=== PATIENT | male | born 1985 | race Caucasian/White ===

== ENCOUNTER → 2016-07-17 | Outpatient (CLI) | payer MEDICAID, OTHER ==
[2016-07-17 13:22] LABS: BASO % 0.6 % (0.0-1.0); EOS # 0.2 K/mm3 (0.0-0.50); LARGE UNSTAINED CELL # 0.1 K/mm3 (0.0-0.4); LARGE UNSTAINED CELL % 1.2 % (0.0-4.0); LYMPH # 2.1 K/mm3 (1.5-6.5); LYMPH % 25.9 % (24.0-44.0); MEAN CORPUSCULAR HEMOGLOBIN 29.3 pg (27.0-33.0); MEAN CORPUSCULAR HGB CONC 34.4 g/dl (32.0-36.5); MONO # 0.4 K/mm3 (0.0-0.8); MONO % 5.4 % (0.0-5.0); PLATELET COUNT, AUTOMATED 214 k/mm3 (150-450); RED CELL DISTRIBUTION WIDTH 12.7 % (11.5-14.5); WHITE BLOOD COUNT 7.8 K/mm3 (4.0-10.0)
[2016-07-17 13:44] LABS: ALBUMIN 4.1 GM/DL (3.2-5.2); ALBUMIN/GLOBULIN RATIO 1.24 (1.00-1.93); ALKALINE PHOSPHATASE 74 U/L (45-117); ALT/SGPT 24 U/L (12-78); ANION GAP 7 MEQ/L (8-16); AST/SGOT 22 U/L (15-37); BILIRUBIN,TOTAL 0.5 MG/DL (0.2-1.0); BLOOD UREA NITROGEN 14 MG/DL (7-18); CALCIUM LEVEL 9.1 MG/DL (8.5-10.1); CARBON DIOXIDE LEVEL 27 MEQ/L (21-32); CHLORIDE LEVEL 105 MEQ/L (98-107); CREATININE FOR GFR 0.83 MG/DL (0.70-1.30); GLOMERULAR FILTRATION RATE > 60.0 (>60); GLUCOSE, FASTING 96 MG/DL (70-105); POTASSIUM SERUM 4.2 MEQ/L (3.5-5.1); SODIUM LEVEL 139 MEQ/L (136-145); TOTAL PROTEIN 7.4 GM/DL (6.4-8.2)
[2016-07-17 14:04] LABS: CONTROL LINE INT CTR LINE PRESENT; HIV SCRN NEGATIVE (NEGATIVE); HIV SCRN1 NEGATIVE (NEGATIVE)
== END ==
LOC: M LAB 11:58
PROVIDERS: ATTEND Family Medicine
DX: F11.20 Opioid dependence, uncomplicated (principal)

== ENCOUNTER → 2017-06-27 | Outpatient (CLI) | payer MEDICAID ==
[2017-06-27 15:55] LABS: HEMATOCRIT 45.7 % (42.0-52.0); HEMOGLOBIN 15.7 g/dl (14.0-18.0); MEAN CORPUSCULAR HEMOGLOBIN 27.8 pg (27.0-33.0); MEAN CORPUSCULAR HGB CONC 34.4 g/dl (32.0-36.5); MEAN CORPUSCULAR VOLUME 80.9 fl (80.0-96.0); PLATELET COUNT, AUTOMATED 264 10^3/uL (150-450); RED BLOOD COUNT 5.65 10^6/uL (4.30-6.10); RED CELL DISTRIBUTION WIDTH 12.5 % (11.5-14.5); WHITE BLOOD COUNT 11.6 10^3/uL (4.0-10.0)
[2017-06-27 16:12] LABS: ALBUMIN 4.2 GM/DL (3.2-5.2); ALBUMIN/GLOBULIN RATIO 1.17 (1.00-1.93); ALKALINE PHOSPHATASE 66 U/L (45-117); ALT/SGPT 17 U/L (12-78); ANION GAP 9 MEQ/L (8-16); AST/SGOT 16 U/L (7-37); BILIRUBIN,TOTAL 0.4 MG/DL (0.2-1.0); BLOOD UREA NITROGEN 11 MG/DL (7-18); CALCIUM LEVEL 9.1 MG/DL (8.5-10.1); CARBON DIOXIDE LEVEL 26 MEQ/L (21-32); CHLORIDE LEVEL 104 MEQ/L (98-107); CREATININE FOR GFR 0.96 MG/DL (0.70-1.30); GLOMERULAR FILTRATION RATE > 60.0 (>60); GLUCOSE, FASTING 85 MG/DL (70-100); SODIUM LEVEL 139 MEQ/L (136-145); TOTAL PROTEIN 7.8 GM/DL (6.4-8.2)
[2017-06-27 17:45] LABS: CHLAMYDIA DNA AMPLIFICATION NEGATIVE (NEGATIVE); GC DNA AMPLIFICATION NEGATIVE (NEGATIVE)
[2017-06-29 10:40] LABS: HEPATITIS B SURFACE ANTIGEN NEGATIVE (NEGATIVE)
[2017-06-29 10:57] LABS: HIV 1&2 SCREEN CENTAUR NEGATIVE (NEGATIVE)
[2017-06-29 11:36] LABS: HEPATITIS C VIRUS ABY INDEX > 11.0 INDEX (<0.8)
== END ==
LOC: M LAB 14:38
DX: F11.20 Opioid dependence, uncomplicated (principal)
CPT/HCPCS: 93005

== ENCOUNTER 2017-08-29 12:51 | Emergency (ER) | payer MEDICAID ==
[2017-08-29] MEDS ORDERED: ONDANSETRON 4MG/2ML VIAL (J2405) IV (15:00)
[2017-08-29] MEDS ORDERED: NS 1,000 ML IV (15:00)
[2017-08-29] MEDS: ONDANSETRON 4 MG ORAL DISINTEGRATING TAB (S0181) PO (15:29)
== END 2017-08-29 16:29 | disposition home or self-care (01) ==
LOC: M ED 12:51
DX: K52.9 Noninfective gastroenteritis and colitis, unspecified (principal); F11.21 Opioid dependence, in remission
CPT/HCPCS: 99284

== ENCOUNTER → 2018-03-19 | Outpatient (CLI) | payer MEDICAID | LOC: M OUTALCOH 10:11 | DX: Z13.9 Encounter for screening, unspecified (principal); F11.20 Opioid dependence, uncomplicated ==

== ENCOUNTER 2018-03-26 16:00 | Outpatient (RCR) | payer MEDICAID | END 2018-04-12 | LOC: M OUTALCOH 03-29 13:00 | DX: F11.20 Opioid dependence, uncomplicated (principal); F17.200 Nicotine dependence, unspecified, uncomplicated ==

== ENCOUNTER 2018-05-10 13:00 | Outpatient (RCR) | payer MEDICAID ==
[~2018-05-10 13:00] MED LIST: ZOFR4TAB14 PO
[2018-05-15] MEDS ORDERED: SUBO8MIS SL (11:32)
[2018-05-15] MEDS ORDERED: ZOFR4TAB14 PO (11:43)
== END 2018-05-13 ==
LOC: M OUTALCOH 13:00
PROVIDERS: ATTEND Psychiatry & Neurology Psychiatry
DX: F17.200 Nicotine dependence, unspecified, uncomplicated (principal); F11.20 Opioid dependence, uncomplicated

== ENCOUNTER 2018-06-07 12:54 | Outpatient (RCR) | payer MEDICAID ==
[~2018-06-07 12:54] MED LIST changes: +SUBO8MIS SL
== END 2018-06-13 ==
LOC: M OUTALCOH 12:54
PROVIDERS: ATTEND Psychiatry & Neurology Psychiatry
DX: F11.20 Opioid dependence, uncomplicated (principal)

== ENCOUNTER 2018-07-05 16:00 | Outpatient (RCR) | payer MEDICAID ==
[2018-07-08] MEDS ORDERED: ERYTOIN8 OP (17:20)
[2018-07-08] MEDS ORDERED: KETO5OPD OP (17:20)
== END 2018-07-11 ==
LOC: M OUTALCOH 16:00
PROVIDERS: ATTEND Psychiatry & Neurology Psychiatry
DX: F11.20 Opioid dependence, uncomplicated (principal)

== ENCOUNTER 2018-07-08 16:10 | Emergency (ER) | payer MEDICAID, OTHER ==
[~2018-07-08] VITALS: Ht 182.9 cm; Wt 77.3 kg
[2018-07-08] MEDS ORDERED: TETRACAINE 0.5% OPHTH SOLN 4ML OU ONE (16:45)
[2018-07-08] MEDS ORDERED: FLUORESCEIN OPHTH 1 MG STRIP OU ONE (16:45)
[2018-07-08] MEDS ORDERED: ERYTOIN8 OP (17:20)
[2018-07-08] MEDS ORDERED: KETO5OPD OP (17:20)
[2018-07-08 17:52] VITALS: BP 126/64
== END 2018-07-08 17:51 | disposition home or self-care (01) ==
LOC: M ED 16:10
DX: H16.8 Other keratitis (principal); F19.11 Other psychoactive substance abuse, in remission; F17.200 Nicotine dependence, unspecified, uncomplicated; Z79.899 Other long term (current) drug therapy

== ENCOUNTER 2018-08-08 10:00 | Outpatient (RCR) | payer OTHER ==
[~2018-08-08 10:00] MED LIST changes: +ERYTOIN8 OP; +KETO5OPD OP
== END 2018-08-11 ==
LOC: M OUTALCOH 10:00
PROVIDERS: ATTEND Psychiatry & Neurology Psychiatry
DX: F11.20 Opioid dependence, uncomplicated (principal)

== ENCOUNTER 2018-08-21 22:02 | Inpatient (IN) | payer MEDICAID, OTHER ==
[~2018-08-21 22:02] MED LIST changes: +KETO0.5S2 OP; -KETO5OPD OP
[2018-08-21 23:10] VITALS: BP 136/86
[2018-08-22 00:03] LABS: INR 1.06; PROTHROMBIN TIME 13.9 SECONDS (12.1-14.4)
[2018-08-22 00:12] LABS: HEMATOCRIT 46.2 % (42.0-52.0); HEMOGLOBIN 15.8 g/dl (13.5-17.5); MEAN CORPUSCULAR HEMOGLOBIN 27.6 pg (27.0-33.0); MEAN CORPUSCULAR HGB CONC 34.2 g/dl (32.0-36.5); MEAN CORPUSCULAR VOLUME 80.8 fl (80.0-96.0); RED BLOOD COUNT 5.72 10^6/uL (4.30-6.10); WHITE BLOOD COUNT 8.3 10^3/uL (4.0-10.0)
[2018-08-22 00:29] LABS: PLATELET COUNT, AUTOMATED 72 10^3/uL (150-450)
[2018-08-22 00:35] LABS: ACETAMINOPHEN LEVEL < 2.0 UG/ML (10.0-30.0); ALBUMIN 3.5 GM/DL (3.2-5.2); ALT/SGPT 1711 U/L (12-78); BILIRUBIN,TOTAL 6.7 MG/DL (0.2-1.0); BLOOD UREA NITROGEN 11 MG/DL (7-18); CARBON DIOXIDE LEVEL 28 MEQ/L (21-32); CHLORIDE LEVEL 102 MEQ/L (98-107); CREATININE FOR GFR 0.66 MG/DL (0.70-1.30); FERRITIN 647 NG/ML (26-388); GLOMERULAR FILTRATION RATE > 60.0 (>60); GLUCOSE, FASTING 102 MG/DL (70-100); SODIUM LEVEL 138 MEQ/L (136-145); TOTAL PROTEIN 6.2 GM/DL (6.4-8.2)
[2018-08-22 00:51] LABS: LDH LACTATE DEHYDROGENASE 259 U/L (87-241); LIPASE 198 U/L (73-393)
[2018-08-22] MEDS ORDERED: NS 1,000 ML IV ONE (01:00)
--- NOTE | 2018-08-22 01:12 | HPEPDOC ---
[facility] Medical History & Physical Date of Admission Aug 22, 2018 History and Physical CHIEF COMPLAINT: (Transfer from [place]) Nausea/Vomiting/diarrhea HISTORY OF PRESENT ILLNESS: Hernan Marshall is a 33 YO M with history of IV drug use (last known IV drug use one year ago) currently on Suboxone treatment who presents as transfer from [facility] for more specialized care. He reports that for the past 4-5 days he has been nauseous, vomiting, lethargic and has had dark urine. He has been taking numerous ibuprofen pills during this time (3-4 pills every hour) as well as Tylenol with little to no relief. He does report that his 2-year-old daughter had a stomach virus prior to his symptoms. This afternoon his came home from work and noticed that he was very jaundiced, which prompted his trip to the ER in [place]. In the ER he was found to have elevated liver enzymes and bilirubin, he underwent a CT scan which only found minor pericholecystic fluid, focal thickening of the gallbladder with no stones, prominence of the portal triads, and periportal edema with ductal d ilation. The patient underwent a right upper quadrant ultrasound which was unremarkable. The patient has been to [facility] ED numerous times for numerous reasons. On 06/27/17 he was found to have an elevated hepatitis C antibody index without any signs of acute infection. He believes he was exposed to hepatitis C when he was an IV drug user. The patient does report that last year in June he did have elevated liver enzymes and bilirubin, but never followed up to find out the etiology. PAST MEDICAL HISTORY: 1. History of IV drug use 2. Childhood asthma 3. Patient reports history of elevated liver enzymes, but unknown etiology PAST SURGICAL HISTORY: None SOCIAL HISTORY: Lives with his and daughter in [place]. 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 Smokes 1 pack of cigarettes every day. No current drug use reported. No alcohol consumption reported. FAMILY HISTORY: Unknown ALLERGIES: Please see below. REVIEW OF SYSTEMS: A 10 point review of systems was performed and is negative other than what is mentioned in the HPI HOME MEDICATIONS: Please see below. PHYSICAL EXAMINATION: VITAL SIGNS: Temperature 96.9, pulse 67, respiratory rate 20, blood pressure 136/86, pulse oximetry 99 % on room air. GENERAL APPEARANCE: Alert, calm, sitting up in bed, pleasant, numerous tattoos, appears stated age HEENT: The patient does have jaundice under his tongue, sclerae are icteric, PERRLA, EOMI, moist mucous membranes CARDIOVASCULAR: RRR, no murmurs, rubs or gallops LUNGS: Clear to auscultation bilaterally without any adventitious breath sounds ABDOMEN: Soft, nontender, bowel sounds are present, liver is not enlarged, spleen is not palpable or enlarged, no signs of chronic liver disease MUSCULOSKELETAL: Moves all extremities well EXTREMITIES: No clubbing, cyanosis or edema NEUROLOGICAL: Cranial nerves II through XII intact, no focal deficits appreciated PSYCHIATRIC: Normal mood, normal affect, AAO 3 LABORATORY DATA: See below. IMAGING: CT abdomen/pelvis at [facility]: Minor pericholecystic fluid. Focal thickening or peristalsis of the fundal portion of the gallbladder. No definitive radiodense gallstone. Minimal prominence of the portal triads, question periportal edema that is very minor intra-hepatic ductal dilation dictation. Minor free fluid in pelvis. There is mild fluid distention of small bowel loops of bowel. Finding is nonspecific. Findings may represent recent ingestion of fluid/peristalsis, mild enteritis, ileus, or less likely early obstructive changes. Consider ultrasound evaluation. Right upper quadrant ultrasound at [facility]: Impression: Unremarkable right upper quadrant ultrasound MICROBIOLOGY: Please see below. ASSESSMENT: This is a 33-year-old male with a history of IV drug use and exposure to hepatitis C who presented to [facility] for nausea, vomiting, diarrhea and jaundice found to have severe transaminitis and hyperbilirubinemia. At [place] his bilirubin was found to be 7.4, alkaline phosphatase 277, AST 949, ALT 2077. His platelet count was found to be 82. Given that the patient does have a history of hepatitis C exposure and positive antibody this could likely be secondary to acute hepatitis C infection versus less likely autoimmune hepatitis. No gallstones were visualized on CT scan or right upper quadrant ultrasound at [facility]. PLAN: 1. Acute Hepatitis: -Will need Gastroenterology consult in AM. -Pending hepatitis studies, including KENOYN for autoimmune hepatitis -Will start on fluid resuscitation -Zofran PRN for nausea 2. History of IVDU -Patient is currently on Suboxone with dose recently increased 2/2 withdrawal symptoms. Unlikely that this has anything to do with acute hepatitis. There have been a few case reports of patients experiencing acute hepatitis with high doses of Suboxone, given that Suboxone undergoes extensive first pass hepatic extraction and is metabolized primarily by the cytochrome P450 system (CYP 3A4), making it more likely to cause acute liver injury. The increase of his dose does correspond to the beginning of his symptoms of present illness. DVT Ppx: Stockings CODE STATUS: FULL CODE Vital Signs Vital Signs Date Time Temp Pulse Resp B/P (MAP) Pulse Ox O2 Delivery O2 Flow Rate FiO2 08/21/18 23:10 96.9 67 20 136/86 (103) 99 Laboratory Data Labs 24H Laboratory Tests 2 08/21/18 23:32: 08/21/18 23:38: Prothrombin Time 13.9, Prothromb Time International Ratio 1.06, Lactic Acid Level 0.8 CBC/BMP Home Medications Scheduled Buprenorphine HCl/Naloxone HCl (Suboxone 8 mg-2 mg Sl Film) 1 Each Film, 1 STRIP SL BID Scheduled PRN Ibuprofen (Ibuprofen) 200 Mg Tablet, 800 MG PO TID PRN for PAIN / FEVER Allergies Coded Allergies: No Known Allergies (Unverified , 08/29/17) GME ATTESTATION GME ATTESTATION My faculty preceptor for this patient encounter was physically present during the encounter and was fully available. All aspects of the patient interview, examination, medical decision making process, and medical care plan development were reviewed and approved by the faculty preceptor. The faculty preceptor is aware and concurs with the plan as stated in the body of this note and will attest to such by his/her cosignature. ATTENDING NOTE I have reviewed the residents note and have personally examined the patient. I agree with the Residents physical examination and assessment and plan with the following addendums Acute hepatitis with mixed hepatocellular and cholestatic picture. most probably viral vs drug related vs shock related. Patient's Tylenol level int eh other hospital as wel as in our hospital was not elevated. though he did take significant amounts of tylenol and NSAIDS in the past 1 week however he says that over the past 2 days he has not been taking much. Patient did not have any overt hypotension in the other hospital or here though he said he was very light headed and dizzy for several days in the past 1 week which has improved in the past 2 days and he has intact been feeling a little better and eating more so he may have had episodes of hypotension at home. DANE GIFFORD MD Aug 22, 2018 01:12 MOISES DAVIS MD Aug 23, 2018 19:35
[2018-08-22] MEDS ORDERED: IBUP-1091 PO (01:58)
[2018-08-22] MEDS ORDERED: SUBO8MIS SL (01:58)
[2018-08-22 05:49] LABS: HEMATOCRIT 41.7 % (42.0-52.0); HEMOGLOBIN 14.3 g/dl (13.5-17.5); MEAN CORPUSCULAR HEMOGLOBIN 27.1 pg (27.0-33.0); MEAN CORPUSCULAR HGB CONC 34.3 g/dl (32.0-36.5); MEAN CORPUSCULAR VOLUME 79.1 fl (80.0-96.0); RED BLOOD COUNT 5.27 10^6/uL (4.30-6.10)
[2018-08-22 05:56] LABS: PLATELET COUNT, AUTOMATED 73 10^3/uL (150-450); WHITE BLOOD COUNT 8.4 10^3/uL (4.0-10.0)
[2018-08-22 06:00] VITALS: BP 113/68
[2018-08-22 06:25] LABS: ATYPICAL LYMPH 13 % (0-5); BASOPHILS 1 % (0-4); EOSINOPHILS 6 % (0-5); LYMPHOCYTES 46 % (16-52); MONOCYTES 4 % (0-8); NEUTROPHILS 30 % (35-75); PLATELET ESTIMATE DECREASED (NORMAL)
[2018-08-22 06:27] LABS: ALBUMIN 2.9 GM/DL (3.2-5.2); ALT/SGPT 1393 U/L (12-78); BILIRUBIN,TOTAL 5.5 MG/DL (0.2-1.0); BLOOD UREA NITROGEN 9 MG/DL (7-18); CALCIUM LEVEL 8.1 MG/DL (8.5-10.1); CARBON DIOXIDE LEVEL 26 MEQ/L (21-32); CHLORIDE LEVEL 107 MEQ/L (98-107); CREATININE FOR GFR 0.63 MG/DL (0.70-1.30); GLOMERULAR FILTRATION RATE > 60.0 (>60); GLUCOSE, FASTING 124 MG/DL (70-100); POTASSIUM SERUM 3.8 MEQ/L (3.5-5.1); SODIUM LEVEL 138 MEQ/L (136-145); TOTAL PROTEIN 5.9 GM/DL (6.4-8.2)
[2018-08-22 06:59] LABS: BILIRUBIN,DIRECT 4.8 MG/DL (0.0-0.2)
[2018-08-22] MEDS ORDERED: INFLUENZA QUADRIVALENT PF VACCINE 0.5ML SYRINGE (90686) IM ONE (09:00)
[2018-08-22] MEDS: BUPRENORPHINE/NALOXONE 8-2MG SUBLINGUAL TABLET(SUBOXONE) SL SCH ×2 (09:45→20:21)
--- NOTE | 2018-08-22 10:02 | REP ---
The portal vein and hepatic vein and Doppler assessment: Portal venous Doppler assessment: No portal venous thrombus is identified. The flow velocities are normal. The flow velocity in the main portal vein is 36.5 cm/sec. Hepatic vein Doppler assessment: No hepatic vein thrombus is identified. The hepatic vein waveforms are triphasic, this is normal. The hepatic vein flow velocity is 37.2 cm/sec. Complete abdominal ultrasound: There is no cholelithiasis. There is a trace of ascites adjacent to the gallbladder. The gallbladder wall is mildly thickened measuring up to 3.3 mm, this may be secondary to the pericholecystic ascites. There is no intrahepatic or extrahepatic biliary duct dilatation. The common biliary duct measures up to 2.6 mm in diameter. The hepatic parenchyma is homogeneous and otherwise unremarkable. There are no hepatic masses. The visualized pancreatic parenchyma is unremarkable. The spleen is enlarged measuring up to 14.1 cm in diameter. The right kidney measures 12.7 x 6.6 x 3.8 cm. The left kidney measures 11.97 0.3 x 5.6 cm. The kidneys are normal size. There are no renal calculi. There is no hydronephrosis. There are no solid or cystic renal masses. There are bilateral renal junctional parenchymal defects identified incidentally. The proximal abdominal aorta measures 2.2 cm below the diaphragm, 1.7 cm at the renal artery level and 1.5 cm at the bifurcation. There is no aortic aneurysm. Impression: There are no hepatic masses. There is a small collection of ascites adjacent to the gallbladder. Splenomegaly. Electronically Signed by Joshua Alonzo MD 08/22/2018 09:53 A
[2018-08-22 14:00] VITALS: BP 127/82
[2018-08-22] MEDS: ONDANSETRON 4 MG ORAL DISINTEGRATING TAB (Q0162 PER 1MG) PO PRN ×2 (15:02→22:47)
[2018-08-22] MEDS: NS 1,000 ML IV SCH (16:15)
--- NOTE | 2018-08-22 20:49 | CR.PDOC ---
General Date of Consultation: Aug 22, 2018 Referring Provider: RENZO JONES DO Attending Physician: SHAE SHELTON MD Consultation Primary physician/ hospitalist: Dr. Jones Reason for consult: Abnormal liver tests/ hepatitis HPI: 33-year-old male patient with history of IVDA (quit many months ago, on Suboxone currently), transferred from [facility] to [facility] for abnormal liver tests. GI was consulted for the same. Patient reports having flulike symptoms for the past 4-5 days with nausea, vomiting, fatigue and muscle aches, (patient reports his 2-year-old daughter was also sick and attributed his symptoms to flu), and was taking Tylenol and ibuprofen OTC with no significant relief. On the day of hospitalization patient's noted him to have jaundice and she brought him to ER. Patient denies any recent travel, recent IVDA, loss of consciousness, syncopal episode, OTC herbal medications. Patient does report having elevated HCV antibody in the past but reports he did not have detectable viral load (HCV VL is not done in [facility]). On examination patient also reports right upper quadrant abdominal pain, mild in intensity, associated with loss of appetite and nausea, and chronic constipation. Pertinent negative GI symptoms: Patient denies fever, chills, generalized pruritus, skin rash, unintentional weight loss. No history of hematemesis, melena or hematochezia. . Review of Systems: GI: as stated above CVS: No chest pain, No palpitations, No leg swelling. RS: No Shortness of breath, No Wheezing, no cough HUMAN FACTORS ADVISOR LEAD: No dizziness, No motor weakness, No sensory problems Hematology: No bruising, No gum bleeding, Musculoskeletal: No joint pain, ambulating well. Skin: No rash : No hematuria, No burning sensation of the urine ENT: No ear discharge/ pain, No dysphagia. Eyes: No photophobia. Home medications: reviewed. Antithrombotic agents -none Medical h/o: As above. Surgical h/o: None on abdomen. Social h/o: Alcohol-denies, tobacco-active smoker, IVDA/ drugs-quit, currently on Suboxone.. Family h/o of GI cancers -none Prior Endoscopies: None in [facility] Prior GI evaluation: None In [facility] Exam: Vitals: reviewed General: Alert and oriented x 3, not in distress HEENT: NO pallor, mild icterus. Normal oropharynx, NO cervical lymph nodes. Chest: symmetric with bilateral clear air entry, CVS: S1, S2 heard, normal, no murmurs . Abdomen: non-distended, no surgical scars, soft, non-tender, no palpable masses, normal bowel sounds heard. Rectal exam: Patient refused Extremities: no pedal edema, pulses palpable. HUMAN FACTORS ADVISOR LEAD: no focal motor or sensory deficits. Moves all extremities Skin: no rash. Multiple tattoos. Labs: reviewed. Undetectable Tylenol level. Severe transaminitis with ALT > AST along with elevated bilirubin. (Mixed hepatocellular pattern), elevated LDH, low platelets. Normal lipase. Imaging tests: Ultrasound abdomen done - showed normal CBD and intra- and extrahepatic bile ducts. Mild ascites. Impression: -- Acute onset flu-like symptoms with mixed pattern transaminitis in a patient with prior history of IVDA and HCV and recent excessive use of NSAIDs and tylenol use -- DDx -- acute viral hepatitis vs DILI ( no tylenol toxicity based on the tylenol level but patient's labs from [facility] not available), vs ischemic hepatopathy vs less likely chronic liver disease. Recommendations: - Patient educated about the test results, possible differential diagnoses and All questions answered. - Close monitoring of mental status. - Monitor Liver panel, BUN/ Cr, PTT, INR daily. - Advance diet as tolerated. - IV hydration as needed. - Avoid Hepatotoxic medications. - Follow up on Viral hepaitits panel -- including HEV igM, HCV PCR. - If worsening liver panel will consider N- Acetyle cysteine empirically for DILI based on the viral hepatitis panel results. - Recall GI fi any acute change in status.. Plan of care discussed with patient and primary team. Patient verbalized understanding and agreed with the plan. Allergies Coded Allergies: No Known Allergies (Unverified , 08/29/17) Home Medications Scheduled Buprenorphine HCl/Naloxone HCl (Suboxone 8 mg-2 mg Sl Film) 1 Each Film, 1 STRIP SL BID, (Reported) Scheduled PRN Ibuprofen (Ibuprofen) 200 Mg Tablet, 800 MG PO TID PRN for PAIN / FEVER, (Reported) SHAE SHELTON MD Aug 22, 2018 20:49
[2018-08-22 22:00] VITALS: BP 119/74
[2018-08-23] MEDS: NS 1,000 ML IV SCH ×3 (01:30→17:29)
[2018-08-23 06:00] VITALS: BP 118/72
[2018-08-23 06:07] LABS: HEMATOCRIT 44.7 % (42.0-52.0); HEMOGLOBIN 15.1 g/dl (13.5-17.5); MEAN CORPUSCULAR HEMOGLOBIN 27.3 pg (27.0-33.0); MEAN CORPUSCULAR HGB CONC 33.8 g/dl (32.0-36.5); MEAN CORPUSCULAR VOLUME 80.8 fl (80.0-96.0); RED BLOOD COUNT 5.53 10^6/uL (4.30-6.10)
[2018-08-23 06:08] LABS: PLATELET COUNT, AUTOMATED 84 10^3/uL (150-450)
[2018-08-23 06:19] LABS: INR 0.95; PROTHROMBIN TIME 12.8 SECONDS (12.1-14.4)
[2018-08-23 06:47] LABS: ALBUMIN 3.3 GM/DL (3.2-5.2); ALT/SGPT 1114 U/L (12-78); BILIRUBIN,TOTAL 5.7 MG/DL (0.2-1.0); BLOOD UREA NITROGEN 11 MG/DL (7-18); CARBON DIOXIDE LEVEL 26 MEQ/L (21-32); CHLORIDE LEVEL 105 MEQ/L (98-107); CREATININE FOR GFR 0.72 MG/DL (0.70-1.30); GLOMERULAR FILTRATION RATE > 60.0 (>60); GLUCOSE, FASTING 90 MG/DL (70-100); POTASSIUM SERUM 4.2 MEQ/L (3.5-5.1); SODIUM LEVEL 137 MEQ/L (136-145); TOTAL PROTEIN 6.5 GM/DL (6.4-8.2)
[2018-08-23] MEDS: SUBOXONE SL SCH ×2 (09:00→20:34)
[2018-08-23 10:45] LABS: HEPATITIS B SURFACE ANTIGEN NEGATIVE (NEGATIVE)
[2018-08-23 11:03] LABS: HIV 1&2 SCREEN CENTAUR NEGATIVE (NEGATIVE)
[2018-08-23 11:14] LABS: HEPATITIS B CORE ANTIBODY IGM NEGATIVE (NEGATIVE)
[2018-08-23 11:15] LABS: HEPATITIS A ANTIBODY IGM NEGATIVE (NEGATIVE)
[2018-08-23 12:24] LABS: HEPATITIS C VIRUS ABY INDEX > 11.0 INDEX (<0.8)
[2018-08-23 14:00] VITALS: BP 139/95
--- NOTE | 2018-08-23 17:02 | IPNPDOC ---
Date Seen The patient was seen on 08/23/18. Progress Note SUBJECTIVE: Hernan Marshall is a 33 YO M with history of IV drug use (last known IV drug use one year ago) currently on Suboxone treatment who presents with 4-5 days of n/v, lethargy, and dark urine and was admitted for acute hepatitis. Patient was seen this morning in his room and reports that he "does not feel like himself," is agitated, has night sweats, feels feverish, and has a 10 lb weight loss over the last 2 weeks. Patient is a smoker and his last cigarette was 3 days ago, he states that he stopped smoking because the cigarettes made him sick. He reports that he initially became sick after his daughter had a stomach illness, he did initially take tylenol during this time. He states that overnight he felt diaphoretic and became nauseous with abdominal pain after the IVF were started. He pulled off his IVF himself after one episode of non bilious vomiting. Nursing reported no new overnight events OBJECTIVE PHYSICAL EXAMINATION: VITAL SIGNS: Please see below. GENERAL: Jaundice, Alert, A&OX3 HEENT: Scleral icteric. moist mucous membranes. EOMI, PERRLA. CARDIOVASCULAR: regular rate, normal S1 and S2. No murmurs, rubs or gallops RESPIRATORY: CTA bilaterally ABDOMINAL: soft, non tender, bowel sounds present EXTREMITIES: Clubbing of the nails. no rashes, no peripheral edema PSYCHOLOGICAL: agitated, frustrated LABORATORY DATA, IMAGING STUDIES, MICROBIOLOGY: Please see below. DVT prophylaxis ordered?: TEDs and sequentials ASSESSMENT AND PLAN: Hernan Marshall is a 33 YO M with history of IV drug use (last known IV drug use one year ago) currently on Suboxone treatment who presents with 4-5 days of n/v, lethargy, and dark urine and was admitted for acute hepatitis. The following problems will be managed during hospitalization: PROBLEMS: Acute Hepatitis: -S: patient reports n/v, fatigue, dark urine, night sweats, weight loss. Last IV drug use about 1 year ago. -O: patient is jaundice, scleral icteric, clubbing. Afebrile. -US: no hepatic masses, small collection of ascites adjacent to the gallbladder, splenomegaly -Hepatitis C Ab high (previously also elevated 06/27/17 and 07/17/16 with negative PCR results). HCV PCR and viral load pending. -HIV negative -Will restart fluid hydration -Zofran PRN for nausea -Gastroenterology consulted, appreciate recommendations Thrombocytopenia: likely secondary to splenic sequestration 2/2 acute hepatitis -US: splenomegaly present -Patient is hemodynamically stable. -H/H are stable, no obvious source of bleeding. Will continue to monitor Hyperbilirubinemia: secondary to viral hepatitis -S: jaundice and scleral icteric present -will continue to monitor History of IVDU -States 1 year sobriety -Patient is currently on Suboxone with dose recently increased 2/2 withdrawal symptoms. DISPOSITION: Pending further work up. VS, I&O, 24H, Fishbone Vital Signs/I&O Vital Signs Date Time Temp Pulse Resp B/P (MAP) Pulse Ox O2 Delivery O2 Flow Rate FiO2 08/23/18 06:00 97.6 66 15 118/72 (87) 99 I&O- Last 24 Hours up to 6 AM 08/23/18 06:00 Intake Total 1200 ml Output Total 450 ml Balance 750 ml Laboratory Data 24H LABS Laboratory Tests 2 08/22/18 22:19: Urine Color SAPPHIRE, Urine Appearance HAZY, Urine pH 7.0, Urine Specific [place] 1.011, Urine Protein NEGATIVE, Urine Glucose (UA) NEGATIVE, Urine Ketones NEGATIVE, Urine Blood NEGATIVE, Urine Nitrite NEGATIVE, Urine Bilirubin 1+H, Urine Urobilinogen 4.0H, Urine Leukocyte Esterase NEGATIVE, Urine WBC (Auto) 1, Urine RBC (Auto) 1, Urine Hyaline Casts (Auto) 0, Urine Bacteria (Auto) NEGATIVE, Urine Squamous Epithelial Cells 0, Urine Amorphous Sediment SMALLH, Urine Mucus (Auto) SMALL, Urine Sperm (Auto) 08/23/18 05:41: Nucleated Red Blood Cells % (auto) 0.0, Immature Platelet Fraction 2.4, Prothrombin Time 12.8, Prothromb Time International Ratio 0.95, Anion Gap 6L, Glomerular Filtration Rate > 60.0, Blood Urea Nitrogen 11, Creatinine 0.72, Sodium Level 137, Potassium Level 4.2, Chloride Level 105, Carbon Dioxide Level 26, Calcium Level 9.0, Aspartate Amino Transf (AST/SGOT) 242H, Alanine Aminot ransferase (ALT/SGPT) 1114H, Alkaline Phosphatase 260H, Total Bilirubin 5.7H, Total Protein 6.5, Albumin 3.3, Albumin/Globulin Ratio 1.03 CBC/BMP Laboratory Tests 08/23/18 05:41 Red Blood Count 5.53, Mean Corpuscular Volume 80.8, Mean Corpuscular Hemoglobin 27.3, Mean Corpuscular Hemoglobin Concent 33.8, Red Cell Distribution Width 14.2, Calcium Level 9.0, Aspartate Amino Transf (AST/SGOT) 242 H, Alanine Aminotransferase (ALT/SGPT) 1114 H, Alkaline Phosphatase 260 H, Total Bilirubin 5.7 H, Total Protein 6.5, Albumin 3.3 GME ATTESTATION GME ATTESTATION My faculty preceptor for this patient encounter was physically present during the encounter and was fully available. All aspects of the patient interview, examination, medical decision making process, and medical care plan development were reviewed and approved by the faculty preceptor. The faculty preceptor is aware and concurs with the plan as stated in the body of this note and will attest to such by his/her cosignature. GME ATTESTATION GME ATTESTATION My faculty preceptor for this patient encounter was physically present during the encounter and was fully available. All aspects of the patient interview, examination, medical decision making process, and medical care plan development were reviewed and approved by the faculty preceptor. The faculty preceptor is aware and concurs with the plan as stated in the body of this note and will attest to such by his/her cosignature. ATTENDING NOTE I, Timi Talley, have both independently examined this patient as well as reviewed the documentation. I have discussed in detail with the resident the findings and plan of treatment as documented in the residents documentation. I will continue to follow the patient and offer further guidance to the patients care as necessary during this hospital stay. CHASE SANTIAGO OMS-III Aug 23, 2018 12:10 TIMI TALLEY MD Aug 23, 2018 17:37
[2018-08-23 22:00] VITALS: BP 148/99
[2018-08-24 00:08] LABS: ANTINUCLEAR ANTIBODIES DIRECT Negative (Negative)
[2018-08-24] MEDS: NS 1,000 ML IV SCH ×3 (00:23→16:37)
[2018-08-24 06:00] VITALS: BP 108/59
[2018-08-24 06:25] LABS: HEMOGLOBIN 13.7 g/dl (13.5-17.5); MEAN CORPUSCULAR HEMOGLOBIN 26.8 pg (27.0-33.0); MEAN CORPUSCULAR HGB CONC 33.4 g/dl (32.0-36.5); MEAN CORPUSCULAR VOLUME 80.1 fl (80.0-96.0); PLATELET COUNT, AUTOMATED 114 10^3/uL (150-450); RED BLOOD COUNT 5.12 10^6/uL (4.30-6.10)
[2018-08-24 06:35] LABS: WHITE BLOOD COUNT 9.6 10^3/uL (4.0-10.0)
[2018-08-24 06:58] LABS: ALT/SGPT 754 U/L (12-78); BILIRUBIN,TOTAL 2.5 MG/DL (0.2-1.0); BLOOD UREA NITROGEN 16 MG/DL (7-18); CALCIUM LEVEL 8.4 MG/DL (8.5-10.1); CARBON DIOXIDE LEVEL 26 MEQ/L (21-32); CHLORIDE LEVEL 106 MEQ/L (98-107); CREATININE FOR GFR 0.67 MG/DL (0.70-1.30); GLOMERULAR FILTRATION RATE > 60.0 (>60); GLUCOSE, FASTING 106 MG/DL (70-100); POTASSIUM SERUM 3.9 MEQ/L (3.5-5.1); SODIUM LEVEL 140 MEQ/L (136-145); TOTAL PROTEIN 6.1 GM/DL (6.4-8.2)
[2018-08-24 07:14] LABS: ATYPICAL LYMPH 5 % (0-5); EOSINOPHILS 5 % (0-5); LYMPHOCYTES 45 % (16-52); MONOCYTES 1 % (0-8); NEUTROPHILS 44 % (35-75)
[2018-08-24 07:15] LABS: PLATELET ESTIMATE DECREASED (NORMAL)
[2018-08-24] MEDS: BUPRENORPHINE/NALOXONE 8-2MG SUBLINGUAL TABLET(SUBOXONE) SL SCH ×2 (09:00→20:47)
--- NOTE | 2018-08-24 11:24 | IPNPDOC ---
Date Seen The patient was seen on 08/24/18. Progress Note SUBJECTIVE: Hernan Marshall is a 33 YO M with history of IV drug use (last known IV drug use one year ago) currently on Suboxone treatment who presents with 4-5 days of n/v, lethargy, and dark urine and was admitted for acute hepatitis. Patient was seen this morning in his room with his fianc at bedside. He has no complaints. He states that he is feeling much better. They have noticed that his yellow tinge has improved. His nausea and vomiting episodes have improved. He is currently taking his own sublingual Suboxone he is tolerating better than the by mouth Suboxone. He has no complaints at this time. Patient knows he has a history of hepatitis C antibodies elevations in the past but the viral panel in the past have been negative. He understands that were currently waiting for the RNA PCR at this time. Last IV drug use was around August 2017 and he has not gotten tested since then. There were no overnight events reported. OBJECTIVE PHYSICAL EXAMINATION: VITAL SIGNS: Please see below. GENERAL: Alert, A&OX3, color and mood improved, very pleasant HEENT: Anicteric sclera, moist mucous membranes. EOMI, PERRLA. CARDIOVASCULAR: regular rate, normal S1 and S2. No murmurs, rubs or gallops RESPIRATORY: CTA bilaterally ABDOMINAL: soft, minimally tender with deep palpitation right upper quadrant (improved), bowel sounds present EXTREMITIES: Clubbing of the nails bilateral. no rashes, no peripheral edema PSYCHOLOGICAL: Pleasant mood LABORATORY DATA, IMAGING STUDIES, MICROBIOLOGY: Please see below. DVT prophylaxis ordered?: TEDs and sequentials ASSESSMENT AND PLAN: Hernan Marshall is a 33 YO M with history of IV drug use (last known IV drug use one year ago) currently on Suboxone treatment who presents with 4-5 days of n/v, lethargy, and dark urine and was admitted for acute hepatitis. The following problems will be managed during hospitalization: PROBLEMS: Acute Hepatitis (Improving) -US: no hepatic masses, small collection of ascites adjacent to the gallbladder, splenomegaly, no cholelithiasis. -possible to have passed a stone as well. even though biliary duct is WNL. -Hepatitis C Ab positive (previously also elevated 06/27/17 and 07/17/16 with negative PCR results). HCV PCR and viral load pending. -HIV negative -Reduce 75cc/hrs NS -Zofran PRN for nausea -Gastroenterology consulted Thrombocytopenia: likely secondary to splenic sequestration 2/2 acute hepatitis (improving) -US: splenomegaly -Patient is hemodynamically stable. -Will continue to monitor History of IVDU -1 year sobriety -Patient is currently on Suboxone with dose recently increased 2/2 withdrawal symptoms -Continue as prescribed DISPOSITION: Pending further work up, possible discharge in 24-048 hrs. VS, I&O, 24H, Fishbone Vital Signs/I&O Vital Signs Date Time Temp Pulse Resp B/P (MAP) Pulse Ox O2 Delivery O2 Flow Rate FiO2 08/24/18 06:00 97.9 64 15 108/59 (75) 99 I&O- Last 24 Hours up to 6 AM 08/24/18 06:00 Intake Total 1620 ml Output Total 0 ml Balance 1620 ml Laboratory Data 24H LABS Laboratory Tests 2 08/24/18 06:05: White Blood Count 9.6, Red Blood Count 5.12, Hemoglobin 13.7, Hematocrit 41.0L, Mean Corpuscular Volume 80.1, Mean Corpuscular Hemoglobin 26.8L, Mean Corpuscular Hemoglobin Concent 33.4, Red Cell Distribution Width 14.3, Platelet Count 114L, Lymphocytes # (Auto) , Nucleated Red Blood Cells % (auto) 0.0, Neutrophils 44, Lymphocytes (Manual) 45, Monocytes (Manual) 1, Eosinophils (Manual) 5, Atypical Lymphocytes 5, Platelet Estimate DECREASED, Red Blood Cell Morphology NORMAL, Anion Gap 8, Glomerular Filtration Rate > 60.0, Blood Urea Nitrogen 16, Creatinine 0.67L, Sodium Level 140, Potassium Level 3.9, Chloride Level 106, Carbon Dioxide Level 26, Calcium Level 8.4L, Aspartate Amino Transf (AST/SGOT) 112H, Alanine Aminotransferase (ALT/SGPT) 754H, Alkaline Phosphatase 228H, Total Bilirubin 2.5#H, Total Protein 6.1L, Albumin 3.0L, Albumin/Globulin Ratio 0.97L CBC/BMP Laboratory Tests 08/24/18 06:05 Red Blood Count 5.12, Mean Corpuscular Volume 80.1, Mean Corpuscular Hemoglobin 26.8 L, Mean Corpuscular Hemoglobin Concent 33.4, Red Cell Distribution Width 14.3, Lymphocytes # (Auto) , Calcium Level 8.4 L, Aspartate Amino Transf (AST/SGOT) 112 H, Alanine Aminotransferase (ALT/SGPT) 754 H, Alkaline Phosphatase 228 H, Total Bilirubin 2.5 #H, Total Protein 6.1 L, Albumin 3.0 L GME ATTESTATION GME ATTESTATION My faculty preceptor for this patient encounter was physically present during the encounter and was fully available. All aspects of the patient interview, examination, medical decision making process, and medical care plan development were reviewed and approved by the faculty preceptor. The faculty preceptor is aware and concurs with the plan as stated in the body of this note and will attest to such by his/her cosignature. ATTENDING NOTE I, Timi Talley, have both independently examined this patient as well as reviewed the documentation. I have discussed in detail with the resident the fi ndings and plan of treatment as documented in the residents documentation. I will continue to follow the patient and offer further guidance to the patients care as necessary during this hospital stay. MAGALIE OVALLE DO Aug 24, 2018 11:23 TIMI TALLEY MD Aug 24, 2018 17:26
[2018-08-24] MEDS ORDERED: SUBOXONE SL ONE (13:00)
[2018-08-24 14:00] VITALS: BP 127/88
[2018-08-24 22:00] VITALS: BP 144/79
[2018-08-25] MEDS: NS 1,000 ML IV SCH (05:57)
[2018-08-25 06:00] VITALS: BP 110/70
[2018-08-25 06:30] LABS: BASO # 0.1 10^3/uL (0.0-0.2); BASO % 0.5 % (0.0-1.0); EOS # 0.4 10^3/uL (0.0-0.50); EOS % 4.3 % (0.0-3.0); HEMATOCRIT 43.3 % (42.0-52.0); HEMOGLOBIN 14.7 g/dl (13.5-17.5); LYMPH # 4.3 10^3/uL (1.5-4.5); LYMPH % 45.6 % (24.0-44.0); MEAN CORPUSCULAR HEMOGLOBIN 27.8 pg (27.0-33.0); MEAN CORPUSCULAR HGB CONC 33.9 g/dl (32.0-36.5); MEAN CORPUSCULAR VOLUME 81.9 fl (80.0-96.0); MONO # 0.7 10^3/uL (0.0-0.8); NEUTROPHILS % 42.2 % (36.0-66.0); PLATELET COUNT, AUTOMATED 154 10^3/uL (150-450); RED BLOOD COUNT 5.29 10^6/uL (4.30-6.10); WHITE BLOOD COUNT 9.4 10^3/uL (4.0-10.0)
[2018-08-25 07:01] LABS: ALBUMIN 3.3 GM/DL (3.2-5.2); ALT/SGPT 594 U/L (12-78); BILIRUBIN,TOTAL 1.9 MG/DL (0.2-1.0); BLOOD UREA NITROGEN 15 MG/DL (7-18); CALCIUM LEVEL 8.2 MG/DL (8.5-10.1); CARBON DIOXIDE LEVEL 27 MEQ/L (21-32); CHLORIDE LEVEL 105 MEQ/L (98-107); CREATININE FOR GFR 0.73 MG/DL (0.70-1.30); GLOMERULAR FILTRATION RATE > 60.0 (>60); GLUCOSE, FASTING 101 MG/DL (70-100); SODIUM LEVEL 137 MEQ/L (136-145); TOTAL PROTEIN 6.6 GM/DL (6.4-8.2)
[2018-08-25] MEDS: BUPRENORPHINE/NALOXONE 8-2MG SUBLINGUAL TABLET(SUBOXONE) SL SCH ×2 (08:25→20:25)
--- NOTE | 2018-08-25 12:28 | IPNPDOC ---
Text Note Date of Service The patient was seen on 08/25/18. NOTE Subjective: Hernan Marshall is a 33 YO M with history of IV drug use (last known IV drug use one year ago) currently on Suboxone treatment who presents with 4-5 days of n/v, lethargy, and dark urine and was admitted for acute hepatitis. Patient was seen and examined at the bedside. Currently has no new complaints. He denies any nausea, vomiting. Denies any chest pain, shortness of breath or palpitations. Denies any abdominal pain, constipation, diarrhea or any urinary discomfort. Currently have advised him that his RNA PCR still has not returned. I have also advised him that once this happens, he will likely home will help establish a primary care provider for him upon discharge. Objective: Vitals (See below) General: Lying in bed, no acute distress, comfortable, AAOx3 HEENT: NC, AT CVS: RRR, +S1S2 Lungs: Fair air entry b/l, -w/r/r Abdomen: Soft, ND, NT Extremities: - Edema, - Calf tenderness Skin: Significant improvement and jaundice Assessment and plan: Elevated liver enzymes - likely 2/2 acute Hepatitis - likely 2/2 viral etiology, possibly 2/2 passed stone - Lab work continues to improve - US: no hepatic masses, small collection of ascites adjacent to the gallbladder, splenomegaly, no cholelithiasis. - Hepatitis C Ab positive (previously also elevated 06/27/17 and 07/17/16 with negative PCR results) - HCV PCR and viral load pending. - HIV negative - s/p IV fluid hydration - c/w Symptomatic control with Zofran - Gastroenterology on consult Thrombocytopenia - likely 2/2 splenic sequestration - US: splenomegaly - Patient is hemodynamically stable. - Will continue to monitor History of IVDU - Reports 1 year sobriety - Patient is currently on Suboxone with dose recently increased 2/2 withdrawal symptoms - Continue as prescribed DVT prophylaxis - c/w TEDs/Sequentials Disposition: - Pending lab work VIKTORIYA,Laly, I+O VS, Laly, I+O Laboratory Tests 08/25/18 05:56 Red Blood Count 5.29, Mean Corpuscular Volume 81.9, Mean Corpuscular Hemoglobin 27.8, Mean Corpuscular Hemoglobin Concent 33.9, Red Cell Distribution Width 14.6 H, Neutrophils (%) (Auto) 42.2, Lymphocytes (%) (Auto) 45.6 H, Monocytes (%) (Auto) 7.0 H, Eosinophils (%) (Auto) 4.3 H, Basophils (%) (Auto) 0.5, Neutrophils # (Auto) 4.0, Lymphocytes # (Auto) 4.3, Monocytes # (Auto) 0.7, Eosinophils # (Auto) 0.4, Basophils # (Auto) 0.1, Calcium Level 8.2 L, Aspartate Amino Transf (AST/SGOT) 80 H, Alanine Aminotransferase (ALT/SGPT) 594 H, Alkaline Phosphatase 212 H, Total Bilirubin 1.9 H, Total Protein 6.6, Albumin 3.3 Vital Signs Date Time Temp Pulse Resp B/P (MAP) Pulse Ox O2 Delivery O2 Flow Rate FiO2 08/25/18 06:00 97.2 92 20 110/70 (83) 98 I&O- Last 24 Hours up to 6 AM 08/25/18 06:00 Intake Total 1732 ml Output Total 0 ml Balance 1732 ml ALVARO TALLEY MD Aug 25, 2018 12:27
[2018-08-25 14:00] VITALS: BP 131/82
[2018-08-25 22:00] VITALS: BP 124/78
[2018-08-26 05:55] LABS: BASO # 0.1 10^3/uL (0.0-0.2); BASO % 0.7 % (0.0-1.0); EOS # 0.4 10^3/uL (0.0-0.50); EOS % 4.1 % (0.0-3.0); HEMATOCRIT 47.5 % (42.0-52.0); HEMOGLOBIN 15.9 g/dl (13.5-17.5); LYMPH # 3.4 10^3/uL (1.5-4.5); LYMPH % 37.8 % (24.0-44.0); MEAN CORPUSCULAR HEMOGLOBIN 26.7 pg (27.0-33.0); MEAN CORPUSCULAR HGB CONC 33.5 g/dl (32.0-36.5); MEAN CORPUSCULAR VOLUME 79.8 fl (80.0-96.0); MONO # 0.6 10^3/uL (0.0-0.8); MONO % 7.2 % (0.0-5.0); NEUTROPHILS # 4.4 10^3/uL (1.8-7.7); NEUTROPHILS % 49.3 % (36.0-66.0); PLATELET COUNT, AUTOMATED 204 10^3/uL (150-450); RED BLOOD COUNT 5.95 10^6/uL (4.30-6.10); WHITE BLOOD COUNT 8.9 10^3/uL (4.0-10.0)
[2018-08-26 06:00] VITALS: BP 122/79
[2018-08-26 06:22] LABS: ALBUMIN 3.5 GM/DL (3.2-5.2); ALT/SGPT 492 U/L (12-78); BILIRUBIN,TOTAL 1.6 MG/DL (0.2-1.0); BLOOD UREA NITROGEN 14 MG/DL (7-18); CALCIUM LEVEL 8.9 MG/DL (8.5-10.1); CARBON DIOXIDE LEVEL 27 MEQ/L (21-32); CHLORIDE LEVEL 103 MEQ/L (98-107); CREATININE FOR GFR 0.68 MG/DL (0.70-1.30); GLOMERULAR FILTRATION RATE > 60.0 (>60); GLUCOSE, FASTING 110 MG/DL (70-100); POTASSIUM SERUM 4.4 MEQ/L (3.5-5.1); SODIUM LEVEL 135 MEQ/L (136-145); TOTAL PROTEIN 7.3 GM/DL (6.4-8.2)
[2018-08-26] MEDS: BUPRENORPHINE/NALOXONE 8-2MG SUBLINGUAL TABLET(SUBOXONE) SL SCH (08:19)
--- NOTE | 2018-08-26 11:32 | DS.PDOC ---
Discharge Summary General Date of Admission Aug 21, 2018 at 23:08 Date of Discharge 08/26/2018 Primary Care Physician: A Discharge Summary PROCEDURES PERFORMED DURING STAY: None ADMITTING DIAGNOSES: 1. Acute Hepatitis 2. History of IVDU DISCHARGE DIAGNOSES: 1. Acute hepatitis 2. Elevated Hepatitis C antibodies 3. Thrombocytopenia 4. History of IVDU COMPLICATIONS/CHIEF COMPLAINT: Hepatitis. HISTORY OF PRESENT ILLNESS: Hernan Marshall is a 33 YO M with history of IV drug use (last known IV drug use one year ago) currently on Suboxone treatment who presents as transfer from [facility] for more specialized care. He reports that for the past 4-5 days he has been nauseous, vomiting, lethargic and has had dark urine. He has been taking numerous ibuprofen pills during this time (3-4 pills every hour) as well as Tylenol with little to no relief. He does report that his 2-year-old daughter had a stomach virus prior to his symptoms. This afternoon his came home from work and noticed that he was very jaundiced, which prompted his trip to the ER in [place]. In the ER he was found to have elevated liver enzymes and bilirubin, he underwent a CT scan which only found minor pericholecystic fluid, focal thickening of the gallbladder with no stones, prominence of the portal triads, and periportal edema with ductal dilation. The patient underwent a right upper quadrant ultrasound which was unremarkable. The patient has been to [facility] ED numerous times for numerous reasons. On 06/27/17 he was found to have an elevated hepatitis C antibody index without any signs of acute infection. He believes he was exposed to hepatitis C when he was an IV drug user. The patient does report that last year in June he did have elevated liver enzymes and bilirubin, but never followed up to find out the etiology. HOSPITAL COURSE: Mr. Marshall presented to the ER in [place] with a 4-5 day history of n/v, lethargy, and dark urine and was transferred and admitted on the Hospitalist surface. On admission he was found to have transaminitis, hyperbilirubinemia, and thrombocytopenia. Patient received aggressive IV fluid hydration and a workup was completed for etiology of elevated LFTS. On viral hepatitis panel, patient was found to have Hepatitis C antibodies, results on HCV PCR and viral load are still pending at discharge to be followed up outpatient. He has been established with a primary care provider and a referral for infectious disease provided. Patient has previously had elevated hepatitis C antibodies in 2017 and 2018 with negative HCV PCR results. Requirement for follow up care was discussed with the patient and they are understood / agreed with directions. DISCHARGE MEDICATIONS: Please see below. ALLERGIES: Please see below. PHYSICAL EXAMINATION ON DISCHARGE: VITAL SIGNS: Please see below. GENERAL: Alert, A&OX3, color and mood improved HEENT: Anicteric sclera, moist mucous membranes. EOMI, PERRLA. CARDIOVASCULAR: regular rate, normal S1 and S2. No murmurs, rubs or gallops RESPIRATORY: CTA bilaterally ABDOMINAL: soft, nontender to palpation EXTREMITIES: Clubbing of the nails bilaterally. no rashes, no peripheral edema LABORATORY DATA: Please see below. IMAGING: CT abdomen/pelvis--[facility]: -Minor pericholecystic fluid. -Focal thickening or peristalsis of the fundal portion of the gallbladder. No definitive radiodense gallstone. -Minimal prominence of the portal triads, question periportal edema that is very minor intra-hepatic ductal dilation dictation. -Minor free fluid in pelvis. -There is mild fluid distention of small bowel loops of bowel. Finding is nonspecific. Findings may represent recent ingestion of fluid/peristalsis, mild enteritis, ileus, or less likely early obstructive changes. Consider ultrasound evaluation. Right upper quadrant ultrasound--[facility]: -Unremarkable right upper quadrant ultrasound Abdominal ultrasound 08/22 -no hepatic masses noted -Splenomegaly -There is a small collection of ascites adjacent to the gallbladder PROGNOSIS: Fair ACTIVITY: As tolerated DIET: Regular diet DISPOSITION: Home DISCHARGE INSTRUCTIONS: 1. Follow up with PCP within 7 days 2. Follow up with Dr. Vásquez in next 1-2 weeks 3. If symptoms return or persist please call PCP and/or return to ER ITEMS TO FOLLOWUP ON ON OUTPATIENT: HCV PCR and viral load results pending. Will have outpatient follow up with PCP / ID DISCHARGE CONDITION: Stable TIME SPENT ON DISCHARGE: Greater than 35 minutes. Vital Signs/I&Os Vital Signs Date Time Temp Pulse Resp B/P (MAP) Pulse Ox O2 Delivery O2 Flow Rate FiO2 08/26/18 06:00 97.2 95 18 122/79 (93) 97 I&O- Last 24 Hours up to 6 AM 08/26/18 07:00 Intake Total 1320 ml Output Total 0 ml Balance 1320 ml Laboratory Data Labs 24H Laboratory Tests 2 08/26/18 05:27: Immature Granulocyte % (Auto) 0.9, White Blood Count 8.9, Red Blood Count 5.95, Hemoglobin 15.9, Hematocrit 47.5, Mean Corpuscular Volume 79.8L, Mean Corpuscular Hemoglobin 26.7L, Mean Corpuscular Hemoglobin Concent 33.5, Red Cell Distribution Width 14.6H, Platelet Count 204, Neutrophils (%) (Auto) 49.3, Lymphocytes (%) (Auto) 37.8, Monocytes (%) (Auto) 7.2H, Eosinophils (%) (Auto) 4.1H, Basophils (%) (Auto) 0.7, Neutrophils # (Auto) 4.4, Lymphocytes # (Auto) 3.4, Monocytes # (Auto) 0.6, Eosinophils # (Auto) 0.4, Basophils # (Auto) 0.1, Nucleated Red Blood Cells % (auto) 0.0, Anion Gap 5L, Glomerular Filtration Rate > 60.0, Blood Urea Nitrogen 14, Creatinine 0.68L, Sodium Level 135L, Potassium Level 4.4, Chloride Level 103, Carbon Dioxide Level 27, Calcium Level 8.9, Aspartate Amino Transf (AST/SGOT) 82H, Alanine Aminotransferase (ALT/SGPT) 492H, Alkaline Phosphatase 216H, Total Bilirubin 1.6H, Total Protein 7.3, Albumin 3.5, Albumin/Globulin Ratio 0.92L CBC/BMP Laboratory Tests 08/26/18 05:27 Red Blood Count 5.95, Mean Corpuscular Volume 79.8 L, Mean Corpuscular Hemoglobin 26.7 L, Mean Corpuscular Hemoglobin Concent 33.5, Red Cell Distribution Width 14.6 H, Neutrophils (%) (Auto) 49.3, Lymphocytes (%) (Auto) 37.8, Monocytes (%) (Auto) 7.2 H, Eosinophils (%) (Auto) 4.1 H, Basophils (%) (Auto) 0.7, Neutrophils # (Auto) 4.4, Lymphocytes # (Auto) 3.4, Monocytes # (Auto) 0.6, Eosinophils # (Auto) 0.4, Basophils # (Auto) 0.1, Calcium Level 8.9, Aspartate Amino Transf (AST/SGOT) 82 H, Alanine Aminotransferase (ALT/SGPT) 492 H, Alkaline Phosphatase 216 H, Total Bilirubin 1.6 H, Total Protein 7.3, Albumin 3.5 Discharge Medications Scheduled Buprenorphine HCl/Naloxone HCl (Suboxone 8 mg-2 mg Sl Film) 1 Each Film, 1 STRIP SL BID, (Reported) Allergies Coded Allergies: No Known Allergies (Unverified , 08/29/17) GME ATTESTATION GME ATTESTATION My faculty preceptor for this patient encounter was physically present during the encounter and was fully available. All aspects of the patient interview, examination, medical decision making process, and medical care plan development were reviewed and approved by the faculty preceptor. The faculty preceptor is aware and concurs with the plan as stated in the body of this note and will attest to such by his/her cosignature. ATTENDING NOTE I, Timi Oshea, have both independently examined this patient as well as reviewed the documentation. I have discussed in detail with the resident the findings and plan of treatment as documented in the residents documentation. I will continue to follow the patient and offer further guidance to the patients care as necessary during this hospital stay. MAGALIE OVALLE DO Aug 26, 2018 11:32 TIMI OSHEA MD Aug 26, 2018 15:11
[2018-08-29 00:06] LABS: HEPATITIS C QUANTITATION 389710 IU/mL (.); HEPATITIS E IgM ANTIBODY Negative (Negative)
== END 2018-08-26 10:59 | disposition home or self-care (01) ==
LOC: M MSPAV 23:08
PROVIDERS: ADMIT Internal Medicine Nephrology; ATTEND Internal Medicine
DX: B17.10 Acute hepatitis C without hepatic coma (principal); D69.6 Thrombocytopenia, unspecified; R16.1 Splenomegaly, not elsewhere classified; E80.6 Other disorders of bilirubin metabolism; F17.210 Nicotine dependence, cigarettes, uncomplicated

== ENCOUNTER 2018-09-06 16:00 | Outpatient (RCR) | payer OTHER ==
[~2018-09-06 16:00] MED LIST changes: +IBUP-1091 PO
== END 2018-09-10 ==
LOC: M OUTALCOH 16:00
PROVIDERS: ATTEND Psychiatry & Neurology Psychiatry
DX: F11.20 Opioid dependence, uncomplicated (principal); F17.200 Nicotine dependence, unspecified, uncomplicated

== ENCOUNTER 2018-09-27 15:00 | Outpatient (RCR) | payer MEDICAID | END 2018-10-11 | LOC: M OUTALCOH 15:00 | PROVIDERS: ATTEND Psychiatry & Neurology Psychiatry | DX: F11.20 Opioid dependence, uncomplicated (principal); F17.200 Nicotine dependence, unspecified, uncomplicated ==

== ENCOUNTER 2018-10-03 12:25 | Emergency (ER) | payer MEDICAID ==
[~2018-10-03] VITALS: Ht 182.9 cm; Wt 75.0 kg
[2018-10-03 12:25] VITALS: BP 132/85
== END 2018-10-03 13:46 | disposition left against medical advice (07) ==
LOC: M ED 12:25
DX: N28.9 Disorder of kidney and ureter, unspecified (principal); Z53.21 Procedure and treatment not carried out due to patient leaving prior to being seen by health care provider

== ENCOUNTER 2019-04-04 19:20 | Emergency (ER) | payer MEDICAID, OTHER ==
[~2019-04-04] VITALS: Ht 180.3 cm; Wt 73.4 kg
[~2019-04-04 19:20] MED LIST changes: -IBUP-1091 PO; +IBUP-1720 PO
[2019-04-04 20:06] LABS: BASO # 0.1 10^3/uL (0.0-0.2); BASO % 0.4 % (0.0-1.0); EOS # 0.1 10^3/uL (0.0-0.5); EOS % 0.8 % (0.0-3.0); HEMATOCRIT 46.1 % (42.0-52.0); HEMOGLOBIN 15.4 g/dl (13.5-17.5); LYMPH # 3.5 10^3/uL (1.5-5.0); LYMPH % 20.9 % (24.0-44.0); MEAN CORPUSCULAR HEMOGLOBIN 27.6 pg (27.0-33.0); MEAN CORPUSCULAR HGB CONC 33.4 g/dl (32.0-36.5); MEAN CORPUSCULAR VOLUME 82.8 fl (80.0-96.0); MONO # 0.9 10^3/uL (0.0-0.8); MONO % 5.4 % (0.0-5.0); NEUTROPHILS % 72.2 % (36.0-66.0); PLATELET COUNT, AUTOMATED 346 10^3/uL (150-450); RED BLOOD COUNT 5.57 10^6/uL (4.30-6.10); WHITE BLOOD COUNT 16.6 10^3/uL (4.0-10.0)
[2019-04-04 20:26] LABS: ACETAMINOPHEN LEVEL < 2.0 UG/ML (10.0-30.0); BLOOD UREA NITROGEN 20 MG/DL (7-18); CALCIUM LEVEL 9.5 MG/DL (8.5-10.1); CARBON DIOXIDE LEVEL 26 MEQ/L (21-32); CHLORIDE LEVEL 102 MEQ/L (98-107); CK-MB VALUE MASS 2.8 NG/ML (<3.6); CPK CREATINE PHOSPHOKINASE 211 U/L (39-308); CREATININE FOR GFR 1.08 MG/DL (0.70-1.30); ETHYL ALCOHOL (ETHANOL) < 0.003 % (0.000-0.010); GLOMERULAR FILTRATION RATE > 60.0 (>60); GLUCOSE, FASTING 97 MG/DL (70-100); MB/CK RELATIVE INDEX 1.33 (< OR =4); POTASSIUM SERUM 4.2 MEQ/L (3.5-5.1); SALICYLATE LEVEL 3.2 MG/DL (5.0-30.0); SODIUM LEVEL 135 MEQ/L (136-145); TROPONIN I < 0.02 NG/ML (< 0.10)
[2019-04-04 22:54] LABS: AMPHETAMINES LEVEL URINE POSITIVE (NEGATIVE); BARBITURATES URINE NEGATIVE (NEGATIVE); BENZODIAZEPINES URINE NEGATIVE (NEGATIVE); CANNABINOIDS URINE POSITIVE (NEGATIVE); COCAINE METABOLITE URINE NEGATIVE (NEGATIVE); METHADONE URINE POSITIVE (NEGATIVE); OPIATES URINE POSITIVE (NEGATIVE); PHENCYCLIDINE URINE NEGATIVE (NEGATIVE)
[2019-04-04 23:11] VITALS: BP 107/74
--- NOTE | 2019-04-05 09:27 | REP ---
HISTORY: Trauma. Preliminary report was given by Dr. Lam from [facility] at the time the exam was performed. TECHNIQUE: 4.5 mm contiguous transaxial sections were obtained from the skull base to the cerebral convexities with thin cuts through the posterior fossa without the administration of intravenous contrast. FINDINGS: The ventricles and sulci are consistent with the patient's age. There are no extra-axial fluid collections. There is no mass effect. The deep cerebral white matter is consistent with the patient's age. The orbital and petrous structures , cerebellopontine angles, and posterior fossa are unremarkable. The sella turcica, cavernous, and paracavernous structures are essentially unremarkable. Subtle opacities are seen in the ethmoid bullae likely from mucosal thickening. There is soft tissue swelling about the left orbit. There is no evidence of a fracture. Images of the skull base show no gross abnormality. IMPRESSION: Unremarkable appearing brain, however, other findings as described above. The exam is limited by motion artifact. Consider followup if clinically relevant. Electronically Signed by Shan Beltran DO 04/05/2019 12:18 P
--- NOTE | 2019-04-05 09:35 | REP ---
HISTORY: Trauma. Preliminary report given by Dr. Lam from [facility] at the time the exam was performed. There is left periorbital and left frontal region soft tissue swelling. There is no fracture. There are no abnormal air fluid levels. The conal and extraconal adipose is within normal limits. The gaze is conjugate. The ocular globes are intact. IMPRESSION: Soft tissue swelling. Electronically Signed by Shan Beltran DO 04/05/2019 12:18 P
--- NOTE | 2019-04-05 13:01 | ECGEPIP ---
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
== END 2019-04-04 23:13 | disposition home or self-care (01) ==
LOC: M ED 19:20
DX: S00.93XA Contusion of unspecified part of head, initial encounter (principal); W01.198A Fall on same level from slipping, tripping and stumbling with subsequent striking against other object, initial encounter; Y92.143 Cell of prison as the place of occurrence of the external cause; F11.10 Opioid abuse, uncomplicated; F12.10 Cannabis abuse, uncomplicated; F15.10 Other stimulant abuse, uncomplicated
CPT/HCPCS: 36415; 70450; 70486; 80048; 80307; 82550; 82553; 85025; 93005; 99285; G0480

== ENCOUNTER 2020-10-03 22:42 | Inpatient (IN) | payer OTHER ==
[~2020-10-03] VITALS: Ht 180.3 cm; Wt 105.2 kg
[2020-10-03] MEDS ORDERED: PRAZ2CAP PO (22:53)
[2020-10-03] MEDS ORDERED: SERO200T PO (22:53)
[2020-10-03] MEDS ORDERED: WELL100T2 PO (22:53)
[2020-10-04] MEDS ORDERED: ONDANSETRON 4MG/2ML VIAL IV ONE (00:55)
[2020-10-04] MEDS ORDERED: KETOROLAC 30 MG/ML 1ML VIAL IV ONE (00:55)
[2020-10-04] MEDS ORDERED: NS 1,000 ML IV ONE (00:55)
[2020-10-04] MEDS ORDERED: PANTOPRAZOLE 40MG VIAL (C9113 PER 1) IV ONE (00:55)
[2020-10-04 01:30] LABS: BASO # 0.1 10^3/uL (0.0-0.2); BASO % 0.4 % (0.0-1.0); EOS % 0.1 % (0.0-3.0); HEMATOCRIT 43.3 % (42.0-52.0); HEMOGLOBIN 14.2 g/dl (13.5-17.5); LYMPH # 2.5 10^3/uL (1.5-5.0); LYMPH % 13.8 % (24.0-44.0); MEAN CORPUSCULAR HEMOGLOBIN 25.4 pg (27.0-33.0); MEAN CORPUSCULAR HGB CONC 32.8 g/dl (32.0-36.5); MEAN CORPUSCULAR VOLUME 77.5 fl (80.0-96.0); MONO # 1.2 10^3/uL (0.0-0.8); MONO % 6.6 % (2.0-8.0); NEUTROPHILS % 78.8 % (36.0-66.0); PLATELET COUNT, AUTOMATED 335 10^3/uL (150-450); RED BLOOD COUNT 5.59 10^6/uL (4.30-6.10); WHITE BLOOD COUNT 17.8 10^3/uL (4.0-10.0)
[2020-10-04] MEDS ORDERED: ISOVUE-370 76% 100ML VIAL As Ordered ONE (01:44)
[2020-10-04 01:49] LABS: INR 1.08; PROTHROMBIN TIME 14.2 SECONDS (12.5-14.3)
[2020-10-04 01:50] LABS: PARTIAL THROMBOPLASTIN TIME 35.5 SECONDS (24.2-38.5)
[2020-10-04 01:54] LABS: ALBUMIN 4.7 GM/DL (3.2-5.2); ALT/SGPT 33 U/L (12-78); BILIRUBIN,DIRECT 0.1 MG/DL (0.0-0.2); BILIRUBIN,TOTAL 0.6 MG/DL (0.2-1.0); LIPASE 66 U/L (73-393)
--- NOTE | 2020-10-04 02:46 | REPVR ---
PROCEDURE INFORMATION: Exam: CT Abdomen And Pelvis With Contrast Exam date and time: 10/04/2020 1:49 AM Age: 35 years old Clinical indication: Abdominal pain TECHNIQUE: Imaging protocol: Computed tomography of the abdomen and pelvis with contrast. Radiation optimization: All CT scans at this facility use at least one of these dose optimization techniques: automated exposure control; mA and/or kV adjustment per patient size (includes targeted exams where dose is matched to clinical indication); or iterative reconstruction. Contrast material: ISOVUE 370; Contrast volume: 100 ml; Contrast route: INTRAVENOUS (IV); COMPARISON: CT ABD PELVIS WITH CONTRAST 10/09/2015 1:35 PM FINDINGS: Lungs: There is a 5 mm juxtapleural nodule along the left lower major fissure projecting into the anterior aspect of the left lower lobe, which is unchanged compared to the prior CT abdomen and pelvis on 10/09/2015 and for which follow-up is not necessary. There is mild atelectasis in the right middle lobe and right lower lobe. The lungs were not fully imaged. Heart: No cardiomegaly or pericardial effusion. Liver: The attenuation of the liver is lower compared to the spleen, which can be seen with fatty liver infiltration. No liver lesion is seen. The contour of the liver is smooth. No hepatomegaly is noted. Gallbladder and bile ducts: No calcified gallstones are noted. No gallbladder wall thickening, pericholecystic fluid, or pericholecystic inflammatory changes are identified. No dilation of the bile ducts is noted. No calcified stones are seen in the common bile duct. Pancreas: Normal. No dilation of the main pancreatic duct is noted. Spleen: There is a calcified granuloma in the spleen that is unchanged compared to the prior CT abdomen and pelvis on 10/09/2015. No splenomegaly. No splenomegaly is noted. Incidental note is made of a small accessory spleen. Adrenal glands: Normal. No adrenal mass is noted. Kidneys and ureters: The kidneys are normal in appearance. No renal lesion is noted. No stones are noted in the kidneys or ureters. There is no hydronephrosis or hydroureter. There are no wedge-shaped areas of low attenuation in the kidneys to suggest pyelonephritis. There is no renal abscess or perinephric fluid collection. Stomach and bowel: The stomach and small bowel are unremarkable. There is no evidence for a bowel obstruction, perforated viscus, pneumatosis intestinalis, intussusception, or volvulus. There is thickening of the wall of the transverse colon, descending colon, and proximal and distal portions of the sigmoid colon, which may be secondary to the decompressed state of this portion of the bowel versus a colitis. No pericolonic inflammatory fat stranding is noted. There is mild colonic diverticulosis without evidence for diverticulitis. Appendix: Normal. There is no evidence for appendicitis. Intraperitoneal space: No free air. No ascites. No abscess. Retroperitoneal space: No fluid collection. No mass. Vasculature: The abdominal aorta is patent, normal in caliber, and there is no dissection. The iliac arteries, common femoral arteries, renal arteries, celiac artery, superior mesenteric artery, and inferior mesenteric artery are patent. The portal veins, splenic vein, superior mesenteric vein, inferior mesenteric vein, and renal veins are patent. Lymph nodes: There are periportal and precaval lymph nodes measuring up to 13 mm in short axis (images 36 and 43 of the axial series 201). Urinary bladder: The partially distended urinary bladder is unremarkable. No stones or masses are seen in the bladder. Reproductive: The prostate gland and seminal vesicles are unremarkable. Bones/joints: There is no fracture or dislocation. No suspicious osteolytic or osteoblastic lesion. Soft tissues: There is a small fat containing umbilical hernia, which is similar in appearance compared to the prior CT abdomen and pelvis on 10/09/2015. There is nonspecific edema in the subcutaneous tissues posteriorly along the midline of the lumbar spine. IMPRESSION: 1. Thickening of the wall of the transverse colon, descending colon, and proximal and distal portions of the sigmoid colon, which may be secondary to the decompressed state of this portion of the bowel versus a colitis. 2. Mild colonic diverticulosis without evidence for diverticulitis. 3. Small fat containing umbilical hernia, which is similar in appearance compared to the prior CT abdomen and pelvis on 10/09/2015. 4. Nonspecific periportal and precaval lymphadenopathy. Electronically signed by: Macho Pena On 10/04/2020 02:45:51 AM
[2020-10-04] MEDS ORDERED: PIPERACILLIN/TAZOBACTAM SOD 4.5 GM in D5W MINI-BAG PLUS 50 ML IV ONE (03:25)
[2020-10-04] MEDS ORDERED: MAALOX 30 ML SUSP *UDC PO PRN (03:40)
[2020-10-04] MEDS ORDERED: ACETAMINOPHEN TAB 650MG DOSE (2X325MG) PO PRN (03:40)
[2020-10-04] MEDS ORDERED: MOM 30ML SUSPENSION UDC PO PRN (03:40)
--- NOTE | 2020-10-04 03:42 | HPEPDOC ---
[facility] Medical History & Physical Date of Admission October 04, 2020 Date of Service: October 04, 2020 Attending Physician: MARGRET CONTRERAS MD History and Physical TIME OF SERVICE: 455am CHIEF COMPLAINT: abdominal pain HISTORY OF PRESENT ILLNESS: For the last 7 or 8 months this 35 yr old M has been having excruciating 8/10 in severity diffuse, non-radiating abdominal pain. He has been self-medicating with his mothers Vicodin and various other meds that she uses for her MS. The pain is associated with bloating, constipation (his last BM was 2 days ago), and episodes of sweating profusely. Despite having a poor appetite he has gained about 50lbs which his mother told him is water weight. He came to the hospital because he started vomiting black feculent material. 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 Smokes 1 pack of cigarettes every day FAMILY HISTORY: Mother has MS, brother of leukemia, Grandfather had colon cancer ALLERGIES: Please see below. HOME MEDICATIONS: Please see below. PHYSICAL EXAMINATION: Vital Signs Date Time Temp Pulse Resp B/P (MAP) Pulse Ox O2 Delivery O2 Flow Rate FiO2 10/03/20 22:43 98.5 123 22 134/93 (107) 96 Room Air GENERAL APPEARANCE: well-nourished and developed/ anxious and teary during parts of the exam HEENT: no scleral icterus / MMM&P CARDIOVASCULAR: RRR/NMRG LUNGS: CTAB on RA ABDOMEN: distended MUSCULOSKELETAL: NCAT / TORRIE x/ 4 INTEGUMENT: slightly flushed & diaphoretic / not jaundice NEUROLOGICAL: CN 2-12 grossly intact/ speech not dysarthric PSYCHIATRIC: A&O x 3/able to understand and follow all commands LABORATORY DATA: Immature Granulocyte % (Auto) 0.3, Neutrophils (%) (Auto) 78.8H, Lymphocytes (%) (Auto) 13.8L, Monocytes (%) (Auto) 6.6, Eosinophils (%) (Auto) 0.1, Basophils (%) (Auto) 0.4, Neutrophils # (Auto) 14.0H, Lymphocytes # (Auto) 2.5, Monocytes # (Auto) 1.2H, Eosinophils # (Auto) 0.0, Basophils # (Auto) 0.1, Nucleated Red Blood Cells % (auto) 0.0, Prothrombin Time 14.2H, Prothromb Time International Ratio 1.08, Activated Partial Thromboplast Time 35.5, Lactic Acid Level 0.9, Total Bilirubin 0.6, Direct Bilirubin 0.1, Aspartate Amino Transf (AST/SGOT) 26, Alanine Aminotransferase (ALT/SGPT) 33, Alkaline Phosphatase 92, Total Protein 9.0H, Albumin 4.7, Albumin/Globulin Ratio 1.1, Lipase 66L 10/04/20 01:23: POC Glucose (Misc Panel) 94, POC Sodium (Misc Panel) 140, POC Potassium (Misc Panel) 4.4, POC Chloride (Misc Panel) 105, POC Total CO2 (Misc Panel) 25.0, POC Blood Urea Nitrogen (Misc Panel 19, POC Ionized Calcium (Misc Panel) 4.5, POC Creatinine (Misc Panel) 1.2, POC Hematocrit (Misc Panel) 44.0 IMAGING: CT abd/pelvis IMPRESSION: 1. Thickening of the wall of the transverse colon, descending colon, and proximal and distal portions of the sigmoid colon, which may be secondary to the decompressed state of this portion of the bowel versus a colitis. 2. Mild colonic diverticulosis without evidence for diverticulitis. 3. Small fat containing umbilical hernia, which is similar in appearance compared to the prior CT abdomen and pelvis on 10/09/2015. 4. Nonspecific periportal and precaval lymphadenopathy. MICROBIOLOGY: respiratory panel neg /blood cx pending ASSESSMENT: is a 35 yr old w hx of Hep C 2/2 remote hx of IVDU & childhood asthma who presented w c/o abdominal pain associated w bloating, chills, poor appetite and black emesis; he will be admitted for Sepsis possibly 2/2 Colitis, and suspected UGIB. PLAN: 1 Sepsis Possibly 2/2 Colitis vs Bacteremia (bc of hx of IVDU SIRS criteria: HR >90 / WBC >12 Lactic acid <2 Plan: bc his qSOFA score is 0 will admit to PCU w telemetry / f/u blood cx / c/w Zosyn and Vanc pending MRSA / IVF / Acetaminophen PRN for fever / target MAP at of least 65 to 70 / f/u Is and Os with target UOP of at least 0.5 ml/kg/H / f/u FSBS w target serum glucose 140-180 while acutely ill 2 Abdominal pain possibly 2/2 colitis vs other colon pathology Plan: will ask the day time team to consult Gen Surg to determine if the pt needs a C-scope / he is constipated therefore we cant collect a GI panel 3 Suspected UGIB He reported having black vomitus & has a sample by the bedside Plan: check orthostats / start PPI 40mg IV BID w Octreotide / f/u Hg Q6H / he may also need an EGD 4 Ansarca /Weight gain Cause TBD His albumin is not low Plan: Lasix x1 / f/u repeat BMP & UA for Uprotein / ER interventional neuroradiologist Jill called the fire department to cut off his wedding ring 5 Gamma Gap Protein albumin = 4.3 = elevated gamma gap Differential includes acute HIV, plasma cell dyscrasia, generalized inflammation, latent infection Plan: f/u work up for infection SPEP, KENYON & HIV 6 Finger nail clubbing May be idiopathic, or related to IBS or malignancy Plan: f/u GI work up / day time team may obtain additional hx whether this is acute or chronic 7 hx of IVDU Plan: Suboxone DVT px w SCDs Dispo: home after at least 2 midnights stay Home Medications Scheduled Buprenorphine HCl/Naloxone HCl (Buprenorphine-Nalox 8-2Mg Film) 8 Mg-2 Mg Film, 2.5 FILM SL DAILY Bupropion HCl (Wellbutrin Sr) 100 Mg Tab.sr.12h, 100 MG PO QAM Dextroamphetamine/Amphetamine (Adderall 30 mg Tablet) 30 Mg Tablet, 30 MG PO BID qam and 1pm Prazosin Hcl (Prazosin HCl) 2 Mg Capsule, 4 MG PO QHS Quetiapine Fumarate (Seroquel) 200 Mg Tablet, 400 MG PO QHS Allergies Coded Allergies: No Known Allergies (Unverified , 04/04/19) A-FIB/CHADSVASC A-FIB History Current/History of A-Fib/PAF?: No Current PO Anticoag Therapy: No MARGRET CONTRERAS MD October 04, 2020 03:41
[2020-10-04] MEDS ORDERED: BUPR1FIL SL (03:53)
[2020-10-04] MEDS ORDERED: ADDE30TA PO (03:53)
[2020-10-04 04:24] LABS: RSV AMPLIFICATION NEGATIVE (NEGATIVE)
[2020-10-04] MEDS ORDERED: LORazepam 2 MG/ML VIAL IV STA (04:37)
[2020-10-04] MEDS ORDERED: ONDANSETRON 4MG/2ML VIAL IV PRN (04:40)
[2020-10-04] MEDS ORDERED: FUROSEMIDE 100MG/10ML VIAL (J1940) IV ONE (04:40)
[2020-10-04] MEDS ORDERED: OCTREOTIDE ACETATE 100MCG/ML VIAL (J2354 PER 25MCG) IV ONE (04:40)
[2020-10-04] MEDS ORDERED: VANCOMYCIN HCL 1,000 MG, VIAL MATE ADAPTER 1 EACH in NS 250 ML IV ONE (05:00)
[2020-10-04] MEDS: NS 1,000 ML IV SCH ×2 (05:04→14:51)
[2020-10-04] MEDS ORDERED: VANCOMYCIN HCL 1,000 MG, VIAL MATE ADAPTER 1 EACH in NS 250 ML IV SCH (06:00)
[2020-10-04 06:20] VITALS: BP 112/81
[2020-10-04] MEDS: SUCRALFATE 1 GM TAB PO SCH ×4 (06:52→23:16)
[2020-10-04 08:07] LABS: COMPLEMENT C4 26 MG/DL (10-40); RHEUMATOID FACTOR QUANT < 10.0 IU/ML (<15.0)
[2020-10-04 08:08] LABS: TOTAL PROTEIN 8.7 GM/DL (6.4-8.2)
[2020-10-04] MEDS ORDERED: BUPRENORPHINE/NALOXONE 8-2MG SUBLINGUAL TABLET(SUBOXONE) SL SCH (09:00)
[2020-10-04] MEDS: BUPRENORPHINE/NALOXONE 8-2MG SUBLINGUAL TABLET(SUBOXONE) PO SCH ×2 (09:00→09:35)
[2020-10-04] MEDS: PANTOPRAZOLE 40MG VIAL (C9113 PER 1) IV SCH ×2 (09:34→23:18)
[2020-10-04] MEDS: buPROPion (WELLBUTRIN SR) 100 MG SR TAB PO SCH ×2 (09:35→11:41)
[2020-10-04] MEDS: ADDERALL 5 MG TAB PO SCH ×3 (09:35→12:58)
[2020-10-04] MEDS ORDERED: PIPERACILLIN/TAZOBACTAM SOD 4.5 GM in D5W MINI-BAG PLUS 50 ML IV SCH (10:00)
[2020-10-04] MEDS: cefTRIAXone SOD 2 GM in D5W MINI-BAG PLUS 50 ML IV SCH (12:58)
[2020-10-04 13:05] LABS: ALBUMIN 4.2 GM/DL (3.2-5.2); ALT/SGPT 29 U/L (12-78); BILIRUBIN,TOTAL 1.2 MG/DL (0.2-1.0); BLOOD UREA NITROGEN 18 MG/DL (7-18); CALCIUM LEVEL 8.6 MG/DL (8.5-10.1); CARBON DIOXIDE LEVEL 21 MEQ/L (21-32); CHLORIDE LEVEL 104 MEQ/L (98-107); CREATININE FOR GFR 1.05 MG/DL (0.70-1.30); GLOMERULAR FILTRATION RATE > 60.0 (>60); GLUCOSE, FASTING 75 MG/DL (70-100); POTASSIUM SERUM 3.9 MEQ/L (3.5-5.1); SODIUM LEVEL 136 MEQ/L (136-145); TOTAL PROTEIN 7.8 GM/DL (6.4-8.2)
[2020-10-04 13:18] LABS: HEPATITIS B SURFACE ANTIGEN NEGATIVE (NEGATIVE)
[2020-10-04 13:35] LABS: ALBUMIN % 56.3 % (55.8-66.1); ALPHA-1-GLOBULIN % 4.6 % (2.9-4.9); ALPHA-2-GLOBULINS 0.85 GM/DL (0.42-0.99); ALPHA-2-GLOBULINS % 9.8 % (7.1-11.8); BETA-1-GLOBULINS 0.68 GM/DL (0.28-0.60); BETA-1-GLOBULINS % 7.8 % (4.7-7.2); BETA-2-GLOBULINS 0.43 GM/DL (0.19-0.55); BETA-2-GLOBULINS % 4.9 % (3.2-6.5); GAMMA GLOBULIN % 16.6 % (11.1-18.8); GAMMA GLOBULINS 1.44 GM/DL (0.65-1.58)
[2020-10-04 13:46] LABS: HEPATITIS B CORE ANTIBODY IGM NEGATIVE (NEGATIVE)
[2020-10-04 13:48] LABS: HEPATITIS A ANTIBODY IGM NEGATIVE (NEGATIVE)
[2020-10-04 13:56] LABS: HEPATITIS C VIRUS ABY INDEX > 11.0 INDEX (<0.8)
[2020-10-04 14:00] VITALS: BP 127/90
--- NOTE | 2020-10-04 14:09 | IPNPDOC ---
Text Note Date of Service The patient was seen on 10/04/20. NOTE S Patient continues to be constipated today, with mild improvement in abd pain, nausea and vomiting. He has not slept well last night due to lab draws and monitoring. He denied fever, vomiting, diarrhea, CP, SOB and urinary symptoms. O VITAL SIGNS: See below GENERAL APPEARANCE: Revealed 35 y/o M in semi-burnette position on hospital bed, alert & oriented x3, in no Acute Distress but mildly anxious due to lack of sleep. HEENT Exam: Normocephalic and atraumatic, PERRL, conjunctiva & lids normal, EOMI, without sclera icteric, mucous membr. moist/pink, pharynx normal, nares patent. NECK: Supple without lymphadenopathy, JVD, thyromegaly LUNGS: Clear to auscultation bilaterally with full breath sounds without rales, wheezing, and crackles. CARDIOVASCULAR: Regular rate and rhythm, normal S1 & S2 without gallops, murmurs, rubs ABDOMEN: Abd diffusely tender to palpation liane in bilateral upper quadrants, non-distended with normal bowel sounds. No masses or ecchymosis or hepatosplenomegaly. EXTREMITIES: 2+ pulses in all extremities. Clubbing noted in bilateral upper and lower digits but no cyanosis, edema. R great toe tender to touch 2/2 accidental trauma (dropping item on his foot). Upper and lower extremities edematous appearing but only 1+ B/L pitting edema noted. SKIN: Normal turgor and temperature. No rash, lesion. Numerous tattoos noted. MUSCULOSKELETAL: Strength +5/5 in all extremities without tenderness. NEUROLOGICAL: Normal speech without signs of gross focal neurological deficit. PSYCHIATRIC: Normal mood and affect ASSESSMENT: is a 35 yr old w/ hx of Hep C (2/2 remote hx of IVDU), childhood asthma and opioid dependence (on Suboxone), who c/o abdominal pain with associated chills, poor appetite and black emesis. He was found with leukocytosis (17.8) and imaging showed "thickening of the wall of the transverse colon, descending colon, and proximal and distal portions of the sigmoid colon, which may be secondary to the decompressed state of this portion of the bowel versus a colitis." He was subsequently admitted for sepsis (possibly 2/2 Colitis) and suspected UGIB. He was started on Vanc/zosyn, and treated with PPI, sucralfate and octreotide on admission. Patient remained nauseous but reported no additional episodes of vomiting. PLAN: 1. Abd pain with leukocytosis and nausea - CT showed "Thickening of the wall of the transverse colon, descending colon, and proximal and distal portions of the sigmoid colon, which may be secondary to the decompressed state of this portion of the bowel versus a colitis, no di verticulitis". - Cannot rule out colitis 2/2 infectious etiology, will follow up blood culture, GI panel and cover with empiric Abx - Was started on Vanc/Zosyn, switch to ceftriaxone - Can be 2/2 opioid withdrawal since patient recently stopped taking Suboxone over the past 2 weeks - Patient unlikely septic with qSOFA of 0. Discontinue blood sugar monitoring. - Colonoscopy not indicated at this time - Cont PPI and sucralfate - RF and complement level normal. KENYON pending. - F/u Hepatitis panel, HIV 2. Ansarca /Weight gain - Etiology unclear - Check protein-creatinine ratio, UA - Check TSH - Na restriction - F/u SPEP 3. Opioid dependence with hx of IVDU and Hep C - Patient has not been taking his Suboxone for past 2 weeks per pharmacy and patient reported he has been taking Vicodin from his mother instead - Restart Suboxone 2.5mg ' - Patient reported hx of Hep C 2/2 IVDU but spontaneously cleared the viral infection - F/u hepatitis panel and HIV. 4. Gamma Gap - Mildly elevated gamma gap - f/u work up for infection, SPEP, KENYON & HIV 5. Finger nail clubbing - Etiology unclear - Appears chronic DVT Prophylaxis: Heparin. Dispo: Anticipate discharge upon clinical improvement and down trending labs. VS,Fishbone, I+O VS, Fishbone, I+O Laboratory Tests 10/04/20 00:53 10/04/20 12:14 Vital Signs Date Time Temp Pulse Resp B/P (MAP) Pulse Ox O2 Delivery O2 Flow Rate FiO2 10/04/20 06:20 98.5 104 18 112/81 (91) 90 Room Air I&O- Last 24 Hours up to 6 AM 10/04/20 06:00 Intake Total 1050 ml Balance 1050 ml GME ATTESTATION GME ATTESTATION My faculty preceptor for this patient encounter was physically present during the encounter and was fully available. All aspects of the patient interview, examination, medical decision making process, and medical care plan development were reviewed and approved by the faculty preceptor. The faculty preceptor is aware and concurs with the plan as stated in the body of this note and will attest to such by his/her cosignature. ATTENDING NOTE I, Parag Paz MD, have independently examined this patient and performed my own physical exam, as well as reviewed the documentation and edited where necessary. I have discussed in detail with the resident / student the findings and plan of treatment as documented by the resident / student and edited their note. I agree with their findings and treatment plan and have edited their documentation. LYNNETTE LUIS OMS-3 October 04, 2020 14:09 PARAG PAZ MD October 05, 2020 14:45
[2020-10-04 16:01] LABS: HIV 1&2 SCREEN CENTAUR NEGATIVE (NEGATIVE)
[2020-10-04] MEDS ORDERED: QUEtiapine FUMARATE 200 MG TAB PO SCH (21:00)
[2020-10-04] MEDS ORDERED: PRAZOSIN 1 MG CAP PO SCH (21:00)
[2020-10-04 22:00] VITALS: BP 127/93
[2020-10-04 23:18] VITALS: BP 127/93
[2020-10-05 01:16] LABS: APPEARANCE, URINE CLEAR (CLEAR); BACTERIA, URINE AUTO NEGATIVE (NEGATIVE); BILIRUBIN, URINE AUTO NEGATIVE (NEGATIVE); BLOOD, URINE BLOOD NEGATIVE (NEGATIVE); COLOR, URINE YELLOW (YELLOW); GLUCOSE, URINE (UA) AUTO NEGATIVE (NEGATIVE); KETONE, URINE AUTO 1+ mg/dL (NEGATIVE); LEUKOCYTE ESTERASE, URINE AUTO NEGATIVE (NEGATIVE); MUCUS, URINE SMALL (NEGATIVE); NITRITE, URINE AUTO NEGATIVE (NEGATIVE); PROTEIN, URINE AUTO NEGATIVE (NEGATIVE); RBC, URINE AUTO 1 /HPF (0-3); SPECIFIC GRAVITY URINE AUTO 1.028 (1.002-1.035); SQUAMOUS EPITHELIAL CELL UR AU 0 /HPF (0-6); WBC, URINE AUTO 1 /HPF (0-3)
[2020-10-05 01:50] LABS: AMPHETAMINES LEVEL URINE POSITIVE (NEGATIVE); BARBITURATES URINE NEGATIVE (NEGATIVE); BENZODIAZEPINES URINE NEGATIVE (NEGATIVE); CANNABINOIDS URINE NEGATIVE (NEGATIVE); COCAINE METABOLITE URINE NEGATIVE (NEGATIVE); METHADONE URINE POSITIVE (NEGATIVE); OPIATES URINE NEGATIVE (NEGATIVE); PHENCYCLIDINE URINE NEGATIVE (NEGATIVE); TOTAL PROTEIN,RANDOM URINE 22.3 MG/DL (0.0-12.0)
[2020-10-05 06:00] VITALS: BP 105/62
[2020-10-05] MEDS: NS 1,000 ML IV SCH (06:09)
[2020-10-05] MEDS: SUCRALFATE 1 GM TAB PO SCH ×2 (06:09→12:25)
[2020-10-05 06:25] LABS: HEMATOCRIT 38.2 % (42.0-52.0); HEMOGLOBIN 12.4 g/dl (13.5-17.5); MEAN CORPUSCULAR HEMOGLOBIN 25.2 pg (27.0-33.0); MEAN CORPUSCULAR HGB CONC 32.5 g/dl (32.0-36.5); MEAN CORPUSCULAR VOLUME 77.6 fl (80.0-96.0); PLATELET COUNT, AUTOMATED 247 10^3/uL (150-450); RED BLOOD COUNT 4.92 10^6/uL (4.30-6.10); WHITE BLOOD COUNT 7.6 10^3/uL (4.0-10.0)
[2020-10-05 06:58] LABS: ALT/SGPT 26 U/L (12-78); BILIRUBIN,TOTAL 0.4 MG/DL (0.2-1.0); BLOOD UREA NITROGEN 15 MG/DL (7-18); CALCIUM LEVEL 7.8 MG/DL (8.5-10.1); CARBON DIOXIDE LEVEL 25 MEQ/L (21-32); CHLORIDE LEVEL 107 MEQ/L (98-107); CREATININE FOR GFR 0.98 MG/DL (0.70-1.30); GLOMERULAR FILTRATION RATE > 60.0 (>60); GLUCOSE, FASTING 134 MG/DL (70-100); POTASSIUM SERUM 3.2 MEQ/L (3.5-5.1); SODIUM LEVEL 139 MEQ/L (136-145); TOTAL PROTEIN 6.7 GM/DL (6.4-8.2)
[2020-10-05] MEDS ORDERED: POTASSIUM CHLORIDE 10 MEQ SR TABLET PO ONE (08:00)
[2020-10-05] MEDS: PANTOPRAZOLE 40MG VIAL (C9113 PER 1) IV SCH (08:35)
[2020-10-05] MEDS: ADDERALL 5 MG TAB PO SCH ×2 (08:35→12:13)
[2020-10-05] MEDS: BUPRENORPHINE/NALOXONE 8-2MG SUBLINGUAL TABLET(SUBOXONE) PO SCH (08:36)
[2020-10-05] MEDS: buPROPion (WELLBUTRIN SR) 100 MG SR TAB PO SCH (08:36)
[2020-10-05 09:09] LABS: PHOSPHORUS LEVEL 2.9 MG/DL (2.5-4.9); URIC ACID 7.5 MG/DL (3.5-7.2)
[2020-10-05 11:08] LABS: ANTINUCLEAR ANTIBODIES DIRECT Negative (Negative)
[2020-10-05] MEDS: cefTRIAXone SOD 2 GM in D5W MINI-BAG PLUS 50 ML IV SCH (12:25)
[2020-10-05 14:00] VITALS: BP 134/82
--- NOTE | 2020-10-05 17:05 | IPNPDOC ---
Date Seen The patient was seen on 10/05/20. Progress Note SUBJECTIVE: Patient was seen and examined this morning. He continues to state that he has abdominal pain. He denies any worsening of pain. He did have some nausea and vomiting yesterday but no further hematemesis. OBJECTIVE PHYSICAL EXAMINATION: VITAL SIGNS: Please see below. GENERAL: Awake, alert, and oriented. Appears in no acute distress. Lying in bed comfortably HEENT: Atraumatic, normocephalic. eyes are nonicteric. Trachea is midline. Mucous membranes are pink and moist. CARDIOVASCULAR: Normal S1, S2. Regular rate and rhythm. No clicks rubs or murmurs RESPIRATORY: Clear breath sounds bilaterally. No wheezes, rhonchi, or rales. Symmetric chest expansion ABDOMINAL: Soft. bloated. Nontender. Normoactive bowel sounds throughout EXTREMITIES: Non-pitting edema in bilateral arms. No edema in lower extremities. Full and equal pulses in bilateral upper and lower extremities NEUROLOGICAL: no focal neurological deficits PSYCHOLOGICAL: Mood and affect appear appropriate LABORATORY DATA, IMAGING STUDIES, MICROBIOLOGY: Please see below. Echocardiogram: Pending DVT prophylaxis ordered?: TEDs and Sequentials ASSESSMENT AND PLAN: Patient is a 35 year old male with a past medical history significant for IVDU and previous hepatitis C who presented to the [facility] ER with complaint of abdominal pain, weight gain, and generalized swelling for the past 2 weeks. Additionally patient was noted to have nausea and vomiting at home with reported one episode of hematemesis. PROBLEMS: 1. Abdominal Pain with leukocytosis and nausea -Patient originally presented with leukocytosis, abdominal pain, nausea and vomiting. CT imaging demonstrating a possible colitis. Patient denies any diarrhea. He is afebrile -Patient is on empiric antibiotics with Rocephin -WBC has come down to 7.6 today. Will likely discontinue antibiotics tomorrow -Possible that his abdominal pain is from opioid withdraw as he has stated that he stopped taking his Suboxone -Abdominal pain could be non-organic functional abdominal pain. -Have advanced patients diet 2. Generalized Swelling -Patient complaining of generalized swelling. His arms do appear slightly swollen however there is no pitting edema. LFTs are normal and this is unlikely related to liver pathology. Additionally urine protein to creatine does not demonstrate any significant proteinuria to suggest a nephrotic syndrome. His TSH is normal and therefore not hypothyroidism. At this point will order an echocardiogram as he may have a cardiomyopathy however this is unlikely. His sensation of swelling is likely non-pathologic. 3. Opioid Dependence w/ history of IVDU and Hep C -Patient has history of drug abuse. He is currently on Suboxone but stated that he has stopped taking this. He has been taking his moms Vicodin reportedly. 4. Finger clubbing -Unclear etiology. Likely idiopathic. No history of restrictive lung disease or liver disease 5. DVT Prophylaxis -Teds and sequentials DISPOSITION: Likely discharge in 24-48 hours VS, I&O, 24H, Fishbone Vital Signs/I&O Vital Signs Date Time Temp Pulse Resp B/P (MAP) Pulse Ox O2 Delivery O2 Flow Rate FiO2 10/05/20 14:00 98.3 70 18 134/82 (99) 98 Room Air I&O- Last 24 Hours up to 6 AM 10/05/20 06:00 Intake Total 4100 ml Output Total 625 ml Balance 3475 ml Laboratory Data 24H LABS Laboratory Tests 2 10/04/20 17:58: Methicillin-Resist S.aureus DNA PCR NOT DETECTED 10/05/20 06:01: Nucleated Red Blood Cells % (auto) 0.0, Anion Gap 7L, Glomerular Filtration Rate > 60.0, Uric Acid 7.5H, Calcium Level 7.8L, Phosphorus Level 2.9, Total Bilirubin 0.4#, Aspartate Amino Transf (AST/SGOT) 19, Alanine Aminotransferase (ALT/SGPT) 26, Alkaline Phosphatase 68, Total Protein 6.7, Albumin 3.0#L, Albumin/Globulin Ratio 0.8 CBC/BMP Laboratory Tests 10/04/20 17:59 10/05/20 00:04 10/05/20 06:01 Microbiology Microbiology 10/04/20 Blood Culture - Preliminary, Resulted No growth after 24 hours . All specim... 10/04/20 Blood Culture - Preliminary, Resulted No growth after 24 hours . All specim... CONOR DE LA TORRE DO October 05, 2020 17:05
--- NOTE | 2020-10-06 11:30 | DS.PDOC ---
Discharge Summary General Date of Admission October 04, 2020 at 03:38 Date of Discharge 10/06/20 Attending Physician: SCAR PAZ MD Discharge Summary PROCEDURES PERFORMED DURING STAY: [None]. ADMITTING DIAGNOSES: 1. Sepsis 2. Abdominal Pain 3. Questionable Upper GI bleed 4. History of IVDU 5. Generalized swelling DISCHARGE DIAGNOSES: 1. Sepsis 2. Abdominal Pain colitis vs malingering 3. Questionable Upper GI bleed 4. History of IVDU 5. Generalized swelling COMPLICATIONS/CHIEF COMPLAINT: Colitis,Sirs. HISTORY OF PRESENT ILLNESS: Patient is a 35 year old male with a past medical history significant for IVDU in remission on suboxone who presented to the [facility] ER with complaint of abdominal pain, nausea, vomiting, and one episode of hematemesis. Patient had stated that he has had diffuse abdominal pain that varies in severity but was 8/10 on presentation. He states that he has had episodes of abdominal pain for at least the past 2 years. This episode has been going on for about 2 weeks. He stated that when this started 2 weeks ago it came on suddenly. He denied any diarrhea. He has been on suboxone and stated that he stopped taking it because he thought the suboxone was causing his pain. He then started taking his moms medications which include a combination of Percocet, Oxycodone, and Vicodin. His mother recently refused to let him take her medications as she wanted him to be evaluated for his abdominal pain. He had then reported episodes of nausea and vomiting and eventually he noted one episode of blood in his emesis. He denied any further episodes. He additionally stated that he has gotten swelling in his arms and what feels like his abdomen over the past two weeks. This prompted him to present to the ED. On presentation to the ED the patient was vitally stable. He was tachycardic and did have a leukocytosis. CT abdomen/pelvis demonstrated possible decompressed bowel vs colitis. Patient was not having any diarrhea. He was afebrile on admission. Patient was admitted for possible sepsis and started on IV antibiotics and IVF. HOSPITAL COURSE: On admission the patient was evaluated for possible etiologies of his abdominal pain and generalized swelling. It was felt unlikely that he had a colitis as he did not have any diarrhea and his nausea and vomiting was resolved. He remained afebrile and his leukocytosis resolved. LFTs were normal and nothing to suggest a liver etiology for his abdominal pain and subjective complaint of swelling. He was evaluated for possible nephrotic syndrome however he did not have any significant proteinuria. Additionally a 2D echo was ordered to rule out cardiac etiology for possible cardiomyopathy. It was felt that the likely cause of the patients symptoms was functional abdominal pain vs opioid withdraw vs malingering. Patient had been taking his mothers medications until she cut him off. He had refused his suboxone while inpatient. His work up was otherwise negative for any organic, pathological cause of abdominal pain and swelling. It was reported that the patient requested Ativan for his opiate withdraw. He was offered suboxone but stated it "puts him in some sort of withdrawal". His had also called nursing staff and reported that "methadone caused his heart to stop in the past due to [id number]". Attempt was made to evaluate the patient for possible withdrawal however he was not present in his room and all his belongings were gone. The patient left AMA. Additionally, he had left with his IV in place. Therefore a [facility] was called but the patient was not located. MEDICAL CONDITIONS ADDRESSED: 1. Abdominal Pain with leukocytosis and nausea -Patient originally presented with leukocytosis, abdominal pain, nausea and vomiting. CT imaging demonstrating a possible colitis. Patient denies any diarrhea. He is afebrile -Patient treated with empiric antibiotics -WBC has come down to 7.6 today. -Possible that his abdominal pain is from opioid withdraw as he has stated that he stopped taking his Suboxone -Abdominal pain likely non-organic, functional. Consider possible malingering as patient has requested Ativan and other controlled substance. History of taking his moms Vicodin, Percocet, and Hydrocodone. Will consider possible withdrawal vs malingering. -Patient left AMA with IV in arm. Strong likelihood that patients abdominal p ain was non-function vs malingering. Work-up was essentially negative for any etiology of abdominal pain or swelling. Echocardiogram was ordered previously however patient left AMA before this could be completed 2. Generalized Swelling -Patient complaining of generalized swelling. His arms do appear slightly swollen however there is no pitting edema. LFTs are normal and this is unlikely related to liver pathology. Additionally urine protein to creatine does not demonstrate any significant proteinuria to suggest a nephrotic syndrome. His TSH is normal and therefore not hypothyroidism. At this point will order an echocardiogram as he may have a cardiomyopathy however this is unlikely. His sensation of swelling is likely non-pathologic. -Patient left AMA however his work-up was essentially negative for any pathologic cause of swelling 3. Opioid Dependence w/ history of IVDU and Hep C -Patient has history of drug abuse. He is currently on Suboxone but stated that he has stopped taking this. He has been taking his moms Vicodin reportedly. -Concern for ongoing drug abuse as the patient left AMA with IV in his arm. 4. Finger clubbing -Unclear etiology. Likely idiopathic. No history of restrictive lung disease or liver disease DISCHARGE MEDICATIONS: Please see below. ALLERGIES: Please see below. PHYSICAL EXAMINATION ON DISCHARGE: VITAL SIGNS: Please see below. PATIENT LEFT AMA. PHYSICAL EXAMINATION NOT PERFORMED BECAUSE PATIENT WAS NOT PHYSICALLY PRESENT LABORATORY DATA: Please see below. IMAGING: PROCEDURE INFORMATION: Exam: CT Abdomen And Pelvis With Contrast Exam date and time: 10/04/2020 1:49 AM Age: 35 years old Clinical indication: Abdominal pain TECHNIQUE: Imaging protocol: Computed tomography of the abdomen and pelvis with contrast. Radiation optimization: All CT scans at this facility use at least one of these dose optimization techniques: automated exposure control; mA and/or kV adjustment per patient size (includes targeted exams where dose is matched to clinical indication); or iterative reconstruction. Contrast material: ISOVUE 370; Contrast volume: 100 ml; Contrast route: INTRAVENOUS (IV); COMPARISON: CT ABD PELVIS WITH CONTRAST 10/09/2015 1:35 PM FINDINGS: Lungs: There is a 5 mm juxtapleural nodule along the left lower major fissure projecting into the anterior aspect of the left lower lobe, which is unchanged compared to the prior CT abdomen and pelvis on 10/09/2015 and for which follow-up is not necessary. There is mild atelectasis in the right middle lobe and right lower lobe. The lungs were not fully imaged. Heart: No cardiomegaly or pericardial effusion. Liver: The attenuation of the liver is lower compared to the spleen, which can be seen with fatty liver infiltration. No liver lesion is seen. The contour of the liver is smooth. No hepatomegaly is noted. Gallbladder and bile ducts: No calcified gallstones are noted. No gallbladder wall thickening, pericholecystic fluid, or pericholecystic inflammatory changes are identified. No dilation of the bile ducts is noted. No calcified stones are seen in the common bile duct. Pancreas: Normal. No dilation of the main pancreatic duct is noted. Spleen: There is a calcified granuloma in the spleen that is unchanged compared to the prior CT abdomen and pelvis on 10/09/2015. No splenomegaly. No splenomegaly is noted. Incidental note is made of a small accessory spleen. Adrenal glands: Normal. No adrenal mass is noted. Kidneys and ureters: The kidneys are normal in appearance. No renal lesion is noted. No stones are noted in the kidneys or ureters. There is no hydronephrosis or hydroureter. There are no wedge-shaped areas of low attenuation in the kidneys to suggest pyelonephritis. There is no renal abscess or perinephric fluid collection. Stomach and bowel: The stomach and small bowel are unremarkable. There is no evidence for a bowel obstruction, perforated viscus, pneumatosis intestinalis, intussusception, or volvulus. There is thickening of the wall of the transverse colon, descending colon, and proximal and distal portions of the sigmoid colon, which may be secondary to the decompressed state of this portion of the bowel versus a colitis. No pericolonic inflammatory fat stranding is noted. There is mild colonic diverticulosis without evidence for diverticulitis. Appendix: Normal. There is no evidence for appendicitis. Intraperitoneal space: No free air. No ascites. No abscess. Retroperitoneal space: No fluid collection. No mass. Vasculature: The abdominal aorta is patent, normal in caliber, and there is no dissection. The iliac arteries, common femoral arteries, renal arteries, celiac artery, superior mesenteric artery, and inferior mesenteric artery are patent. The portal veins, splenic vein, superior mesenteric vein, inferior mesenteric vein, and renal veins are patent. Lymph nodes: There are periportal and precaval lymph nodes measuring up to 13 mm in short axis (images 36 and 43 of the axial series 201). Urinary bladder: The partially distended urinary bladder is unremarkable. No stones or masses are seen in the bladder. Reproductive: The prostate gland and seminal vesicles are unremarkable. Bones/joints: There is no fracture or dislocation. No suspicious osteolytic or osteoblastic lesion. Soft tissues: There is a small fat containing umbilical hernia, which is similar in appearance compared to the prior CT abdomen and pelvis on 10/09/2015. There is nonspecific edema in the subcutaneous tissues posteriorly along the midline of the lumbar spine. IMPRESSION: 1. Thickening of the wall of the transverse colon, descending colon, and proximal and distal portions of the sigmoid colon, which may be secondary to the decompressed state of this portion of the bowel versus a colitis. 2. Mild colonic diverticulosis without evidence for diverticulitis. 3. Small fat containing umbilical hernia, which is similar in appearance compared to the prior CT abdomen and pelvis on 10/09/2015. 4. Nonspecific periportal and precaval lymphadenopathy. Electronically signed by: Macho Pena On 10/04/2020 02:45:51 AM PROGNOSIS: FAIR ACTIVITY: [As tolerated]. DIET: As tolerated DISCHARGE PLAN: Patient left AMA. His abdominal pain is likely non-organic and non-pathologic. He has had a complete work-up with no clear etiology of his pain. Suspect opioid withdrawal vs malingering for opioid use. DISPOSITION: 07 Against Medical Advice. DISCHARGE CONDITION: [Stable]. TIME SPENT ON DISCHARGE: Greater than 40 minutes. Vital Signs/I&Os Vital Signs Date Time Temp Pulse Resp B/P (MAP) Pulse Ox O2 Delivery O2 Flow Rate FiO2 10/05/20 14:00 98.3 70 18 134/82 (99) 98 Room Air I&O- Last 24 Hours up to 6 AM 10/06/20 06:00 Intake Total 1010 ml Balance 1010 ml Microbiology Microbiology 10/04/20 Blood Culture - Preliminary, Resulted No Growth after 48 hours. All Specime... 10/04/20 Blood Culture - Preliminary, Resulted No Growth after 48 hours. All Specime... Discharge Medications Scheduled Buprenorphine HCl/Naloxone HCl (Buprenorphine-Nalox 8-2Mg Film) 8 Mg-2 Mg Film, 2.5 FILM SL DAILY, (Reported) Bupropion HCl (Wellbutrin Sr) 100 Mg Tab.sr.12h, 100 MG PO QAM, (Reported) Dextroamphetamine/Amphetamine (Adderall 30 mg Tablet) 30 Mg Tablet, 30 MG PO BID, (Reported) qam and 1pm Prazosin Hcl (Prazosin HCl) 2 Mg Capsule, 4 MG PO QHS, (Reported) Quetiapine Fumarate (Seroquel) 200 Mg Tablet, 400 MG PO QHS, (Reported) Allergies Coded Allergies: No Known Allergies (Unverified , 04/04/19) CONOR DE LA TORRE DO October 06, 2020 11:30
--- NOTE | 2020-10-06 15:07 | ECHO ---
DATE OF PROCEDURE: 10/05/2020 Age: 35 Gender: Male Height: 180 cm Weight: 105 kg REFERRING PHYSICIAN: Dr. Duc Owens. INDICATION: Localized edema, unspecified. MEASUREMENTS: 2D Measurements: Interventricular septum 1.05 cm Posterior wall 1.09 cm Left ventricle diastole 4.4 cm Left atrium 4.0 cm Aortic root 2.9 cm Left atrium volume index 19 cm Inferior vena cava 2.4 cm with normal respiratory variation Doppler Measurements: Aortic valve velocity 129 cm/s Mild mitral regurgitation Mitral E velocity 108 cm/s Mitral A velocity 67.7 cm/s Mitral deceleration time 174 msec Mild tricuspid regurgitation Estimated right ventricle systolic pressure 20-25 mmHg Estimated right atrial pressure 5-10 mmHg No pulmonic regurgitation Pulmonary artery acceleration time 119 msec MITRAL ANNULAR TISSUE DOPPLER E prime septal 8.3 cm/s, E prime lateral 10.4 cm/s DESCRIPTION: Rhythm was sinus. Image quality was good. This was a 2D, M-mode, color flow Doppler, and pulsed wave Doppler examination including mitral annular tissue Doppler. CONCLUSIONS: 1. Suggestive of normal central venous pressure and estimated right ventricle systolic pressure. Normal right ventricle size and systolic function. Normal right atrial size. Suggestive of normal CVP (CVP estimated to be 5-10 mmHg). 2. Normal left ventricle internal dimensions and wall thickness. Normal regional LV wall motion and wall thickening. Normal LV systolic function. Normal LV diastolic function. Normal left atrial size. 3. Tiny pericardial effusion quite possibly within physiologic limits. 4. Otherwise normal appearing echocardiogram Doppler findings. MTDD
== END 2020-10-05 17:50 | disposition left against medical advice (07) | DRG 249 ==
LOC: M ED 22:42 → M ED INP 10-04 03:38 → ENRESERV 10-04 05:06 → M MSPAV 10-04 06:43
PROVIDERS: ADMIT Internal Medicine; ATTEND Internal Medicine
DX: K52.9 Noninfective gastroenteritis and colitis, unspecified (principal); F11.20 Opioid dependence, uncomplicated; Z76.5 Malingerer [conscious simulation]; B18.2 Chronic viral hepatitis C; R68.3 Clubbing of fingers; R63.5 Abnormal weight gain; Z79.899 Other long term (current) drug therapy

== ENCOUNTER 2021-07-18 03:56 | Emergency (ER) | payer OTHER ==
[~2021-07-18] VITALS: Ht 182.9 cm; Wt 104.9 kg
[~2021-07-18 03:56] MED LIST changes: +ADDE30TA PO; +BUPR1FIL SL; +PRAZ2CAP PO; +SERO200T PO; +WELL100T2 PO
[2021-07-18] MEDS ORDERED: XANA2TAB2 PO (04:25)
[2021-07-18] MEDS ORDERED: TRAZ1TAB14 PO (04:25)
[2021-07-18] MEDS ORDERED: NS 1,000 ML IV ONE (07:35)
[2021-07-18 07:48] LABS: BASO # 0.1 10^3/uL (0.0-0.2); BASO % 0.6 % (0.0-1.0); EOS # 0.2 10^3/uL (0.0-0.5); EOS % 0.9 % (0.0-3.0); HEMATOCRIT 44.5 % (42.0-52.0); HEMOGLOBIN 14.3 g/dl (13.5-17.5); LYMPH # 4.3 10^3/uL (1.5-5.0); LYMPH % 24.4 % (24.0-44.0); MEAN CORPUSCULAR HEMOGLOBIN 24.8 pg (27.0-33.0); MEAN CORPUSCULAR HGB CONC 32.1 g/dl (32.0-36.5); MEAN CORPUSCULAR VOLUME 77.3 fl (80.0-96.0); MONO # 1.2 10^3/uL (0.0-0.8); MONO % 6.9 % (2.0-8.0); NEUTROPHILS # 11.7 10^3/uL (1.5-8.5); NEUTROPHILS % 66.7 % (36.0-66.0); PLATELET COUNT, AUTOMATED 345 10^3/uL (150-450); RED BLOOD COUNT 5.76 10^6/uL (4.30-6.10); WHITE BLOOD COUNT 17.6 10^3/uL (4.0-10.0)
[2021-07-18] MEDS ORDERED: KETOROLAC 30 MG/ML 1ML VIAL IV ONE (08:10)
[2021-07-18 08:13] LABS: C REACTIVE PROTEIN QUANTITATIV 3.17 MG/DL (0.00-0.30)
[2021-07-18 08:31] LABS: ERYTHROCYTE SEDIMENTATION RATE 9 mm/hr (0-15)
[2021-07-18 08:43] LABS: ALBUMIN 4.3 GM/DL (3.2-5.2); BILIRUBIN,DIRECT 0.1 MG/DL (0.0-0.2); BILIRUBIN,TOTAL 0.5 MG/DL (0.2-1.0); TOTAL PROTEIN 8.7 GM/DL (6.4-8.2)
[2021-07-18] MEDS ORDERED: MORPHINE 4 MG/ML 1ML VIAL/SYRINGE (J2270) IV ONE (08:45)
[2021-07-18] MEDS ORDERED: DALBAVANCIN 1,500 MG in D5W 250 ML IV ONE (08:45)
[2021-07-18 10:54] VITALS: BP 157/96
[2021-07-18] MEDS ORDERED: IBUP80TA PO (10:57)
== END 2021-07-18 11:01 | disposition home or self-care (01) ==
LOC: M ED 03:56
DX: L02.91 Cutaneous abscess, unspecified (principal); F11.10 Opioid abuse, uncomplicated; S90.852A Superficial foreign body, left foot, initial encounter; J45.909 Unspecified asthma, uncomplicated; G40.509 Epileptic seizures related to external causes, not intractable, without status epilepticus; K58.9 Irritable bowel syndrome, unspecified; Z87.442 Personal history of urinary calculi; F17.200 Nicotine dependence, unspecified, uncomplicated; Z79.899 Other long term (current) drug therapy; Y92.9 Unspecified place or not applicable; Y93.9 Activity, unspecified; Y99.9 Unspecified external cause status
CPT/HCPCS: 71046; 73070; 73620; 80047; 80076; 83605; 83690; 85025; 85652; 86140; 87040; 93005; 93970; 96361; 96365; 96375; 99284; J0875; J1885; J2270

== ENCOUNTER 2022-02-19 17:37 | Inpatient (IN) | payer OTHER ==
[~2022-02-19] VITALS: Ht 182.9 cm; Wt 84.0 kg
[~2022-02-19 17:37] MED LIST changes: +IBUP80TA PO; +TRAZ1TAB14 PO; +XANA2TAB2 PO
[2022-02-19] MEDS ORDERED: levETIRAcetam 500 MG/5 ML VIAL (KEPPRA IV)(J1953) As Ordered ONE (18:07)
[2022-02-19] MEDS ORDERED: levETIRAcetam INJection 1,000 MG in D5W 100 ML IV ONE (18:10)
[2022-02-19 18:32] LABS: HEMATOCRIT 54.4 % (42.0-52.0); HEMOGLOBIN 18.1 g/dl (13.5-17.5); MEAN CORPUSCULAR HEMOGLOBIN 25.2 pg (27.0-33.0); MEAN CORPUSCULAR HGB CONC 33.3 g/dl (32.0-36.5); MEAN CORPUSCULAR VOLUME 75.9 fl (80.0-96.0); PLATELET COUNT, AUTOMATED 387 10^3/uL (150-450); RED BLOOD COUNT 7.17 10^6/uL (4.30-6.10); WHITE BLOOD COUNT 17.4 10^3/uL (4.0-10.0)
[2022-02-19 18:43] LABS: RSV AMPLIFICATION NEGATIVE (NEGATIVE)
[2022-02-19 18:52] LABS: AMPHETAMINES LEVEL URINE NEGATIVE (NEGATIVE); BARBITURATES URINE NEGATIVE (NEGATIVE); BENZODIAZEPINES URINE NEGATIVE (NEGATIVE); CANNABINOIDS URINE NEGATIVE (NEGATIVE); COCAINE METABOLITE URINE NEGATIVE (NEGATIVE); METHADONE URINE NEGATIVE (NEGATIVE); OPIATES URINE NEGATIVE (NEGATIVE); PHENCYCLIDINE URINE NEGATIVE (NEGATIVE)
[2022-02-19] MEDS ORDERED: ONDANSETRON 4MG 2ML VIAL IV ONE (19:05)
[2022-02-19] MEDS ORDERED: ACETAMINOPHEN TAB 650MG DOSE (2X325MG) PO ONE (19:25)
[2022-02-19 19:40] LABS: ACETAMINOPHEN LEVEL < 2.0 UG/ML (10.0-30.0); ALBUMIN 4.9 GM/DL (3.2-5.2); ALT/SGPT 95 U/L (12-78); BILIRUBIN,DIRECT 0.8 MG/DL (0.0-0.2); BILIRUBIN,TOTAL 2.5 MG/DL (0.2-1.0); BLOOD UREA NITROGEN 30 MG/DL (7-18); CALCIUM LEVEL 10.9 MG/DL (8.5-10.1); CARBON DIOXIDE LEVEL 37 MEQ/L (21-32); CHLORIDE LEVEL 84 MEQ/L (98-107); CREATININE FOR GFR 1.32 MG/DL (0.70-1.30); ETHYL ALCOHOL (ETHANOL) < 0.003 % (0.000-0.010); GLOMERULAR FILTRATION RATE > 60.0 (>60); GLUCOSE, FASTING 149 MG/DL (70-100); POTASSIUM SERUM 2.8 MEQ/L (3.5-5.1); SALICYLATE LEVEL < 1.7 MG/DL (5.0-30.0); SODIUM LEVEL 130 MEQ/L (136-145); TOTAL PROTEIN 10.2 GM/DL (6.4-8.2)
[2022-02-19] MEDS ORDERED: KCL 10MEQ/100ML SWI (KRUN) 10 MEQ in IV 1 EA IV ONE ×3 (19:40→22:00)
[2022-02-19] MEDS ORDERED: NS 1,000 ML IV ONE (19:45)
[2022-02-19] MEDS ORDERED: POTASSIUM CHLORIDE 10MEQ SR TABLET PO ONE ×2 (20:00→22:00)
[2022-02-19] MEDS ORDERED: PRAZOSIN 1 MG CAP PO SCH (21:00)
[2022-02-19] MEDS ORDERED: KETOROLAC 30 MG/ML 1ML VIAL IV ONE (21:00)
[2022-02-19] MEDS ORDERED: IBUP80TA PO (21:24)
[2022-02-19] MEDS ORDERED: ONDA4TAB6 PO (21:24)
[2022-02-19] MEDS ORDERED: MED REC COMMENT (21:58)
[2022-02-19] MEDS ORDERED: HOME MED LIST COMPLETE! XX SCH (22:00)
[2022-02-19] MEDS ORDERED: LORazepam 2 MG TAB PO PRN (22:40)
[2022-02-19] MEDS: NS 1,000 ML IV SCH (23:00)
[2022-02-20] VITALS (10 sets, daily range): BP systolic 127–152; BP diastolic 74–94
[2022-02-20] MEDS ORDERED: RAMELTEON 8 MG TAB (ROZEREM) PO ONE
[2022-02-20] MEDS: THIAMINE 100 MG TAB PO SCH ×3 (01:18→20:17)
[2022-02-20] MEDS ORDERED: BENZOCAINE 10% 9GM TUBE (ANBESOL) MT PRN (03:00)
[2022-02-20] MEDS: HEPARIN SOD (PORCINE) 5000UNITS/ML 1ML VIAL/SYRINGE SC SCH ×3 (05:03→20:17)
[2022-02-20 06:09] LABS: HEMATOCRIT 46.2 % (42.0-52.0); HEMOGLOBIN 15.4 g/dl (13.5-17.5); MEAN CORPUSCULAR HEMOGLOBIN 25.7 pg (27.0-33.0); MEAN CORPUSCULAR HGB CONC 33.3 g/dl (32.0-36.5); MEAN CORPUSCULAR VOLUME 77.1 fl (80.0-96.0); PLATELET COUNT, AUTOMATED 307 10^3/uL (150-450); RED BLOOD COUNT 5.99 10^6/uL (4.30-6.10); WHITE BLOOD COUNT 15.6 10^3/uL (4.0-10.0)
[2022-02-20 06:49] LABS: ALBUMIN 3.8 GM/DL (3.2-5.2); ALT/SGPT 99 U/L (12-78); BILIRUBIN,TOTAL 2.2 MG/DL (0.2-1.0); BLOOD UREA NITROGEN 27 MG/DL (7-18); CALCIUM LEVEL 9.3 MG/DL (8.5-10.1); CARBON DIOXIDE LEVEL 32 MEQ/L (21-32); CHLORIDE LEVEL 97 MEQ/L (98-107); CREATININE FOR GFR 0.93 MG/DL (0.70-1.30); GLOMERULAR FILTRATION RATE > 60.0 (>60); GLUCOSE, FASTING 109 MG/DL (70-100); MAGNESIUM LEVEL 2.4 MG/DL (1.8-2.4); POTASSIUM SERUM 2.9 MEQ/L (3.5-5.1); SODIUM LEVEL 136 MEQ/L (136-145); TOTAL PROTEIN 7.5 GM/DL (6.4-8.2)
[2022-02-20] MEDS ORDERED: ONDANSETRON 4MG TAB PO PRN (07:35)
[2022-02-20] MEDS: NS 1,000 ML IV SCH (07:42)
[2022-02-20] MEDS: KCL 10MEQ/100ML SWI (KRUN) 10 MEQ in IV 1 EA IV SCH ×4 (07:43→11:25)
[2022-02-20] MEDS ORDERED: POTASSIUM CHLORIDE 10MEQ SR TABLET PO ONE (08:00)
[2022-02-20] MEDS ORDERED: BUPRENORPHINE/NALOXONE 8-2MG SUBLINGUAL TABLET(SUBOXONE) SL SCH (09:00)
[2022-02-20] MEDS ORDERED: INFLUENZA QUADRIVALENT PF VACCINE 0.5ML SYRINGE IM.IMMUN ONE (09:00)
[2022-02-20] MEDS: FOLIC ACID 1MG TAB PO SCH (09:01)
[2022-02-20] MEDS: MULTIVITAMINS/MINERALS THERAP 1 TAB PO SCH (09:02)
[2022-02-20] MEDS ORDERED: BUPRENORPHINE/NALOXONE 8-2MG SUBLINGUAL TABLET(SUBOXONE) SL ONE (09:35)
[2022-02-20] MEDS ORDERED: PILL CUTTER 1 EACH XX PRN (09:35)
[2022-02-20] MEDS ORDERED: ISOVUE-370 76% 100ML VIAL As Ordered ONE (11:21)
[2022-02-20] MEDS ORDERED: METOCLOPRAMIDE 5 MG TAB PO PRN (14:05)
[2022-02-20] MEDS: PANTOPRAZOLE 40MG VIAL IV SCH (15:30)
[2022-02-20 17:05] LABS: HEMOGLOBIN A1c 5.7 %
[2022-02-20 17:23] LABS: BLOOD UREA NITROGEN 22 MG/DL (7-18); CALCIUM LEVEL 9.8 MG/DL (8.5-10.1); CARBON DIOXIDE LEVEL 31 MEQ/L (21-32); CHLORIDE LEVEL 98 MEQ/L (98-107); CREATININE FOR GFR 0.91 MG/DL (0.70-1.30); GLOMERULAR FILTRATION RATE > 60.0 (>60); GLUCOSE, FASTING 104 MG/DL (70-100); HIV 1&2 SCREEN CENTAUR NEGATIVE (NEGATIVE); POTASSIUM SERUM 3.8 MEQ/L (3.5-5.1); SODIUM LEVEL 135 MEQ/L (136-145)
[2022-02-21] MEDS: ACETAMINOPHEN TAB 650MG DOSE (2X325MG) PO PRN ×2 (00:08→08:41)
[2022-02-21 04:00] VITALS: BP 136/98
[2022-02-21] MEDS: HEPARIN SOD (PORCINE) 5000UNITS/ML 1ML VIAL/SYRINGE SC SCH (05:09)
[2022-02-21 06:01] VITALS: BP 136/98
[2022-02-21 06:49] LABS: BASO # 0.1 10^3/uL (0.0-0.2); BASO % 0.7 % (0.0-1.0); EOS # 0.3 10^3/uL (0.0-0.5); EOS % 2.7 % (0.0-3.0); HEMATOCRIT 45.5 % (42.0-52.0); HEMOGLOBIN 14.7 g/dl (13.5-17.5); LYMPH # 5.1 10^3/uL (1.5-5.0); LYMPH % 44.2 % (24.0-44.0); MEAN CORPUSCULAR HEMOGLOBIN 25.7 pg (27.0-33.0); MEAN CORPUSCULAR HGB CONC 32.3 g/dl (32.0-36.5); MEAN CORPUSCULAR VOLUME 79.4 fl (80.0-96.0); MONO # 0.9 10^3/uL (0.0-0.8); MONO % 7.5 % (2.0-8.0); NEUTROPHILS # 5.1 10^3/uL (1.5-8.5); NEUTROPHILS % 44.6 % (36.0-66.0); PLATELET COUNT, AUTOMATED 282 10^3/uL (150-450); RED BLOOD COUNT 5.73 10^6/uL (4.30-6.10); WHITE BLOOD COUNT 11.5 10^3/uL (4.0-10.0)
[2022-02-21 07:25] LABS: ALBUMIN 3.4 GM/DL (3.2-5.2); ALT/SGPT 73 U/L (12-78); BILIRUBIN,TOTAL 1.3 MG/DL (0.2-1.0); BLOOD UREA NITROGEN 17 MG/DL (7-18); CALCIUM LEVEL 8.7 MG/DL (8.5-10.1); CARBON DIOXIDE LEVEL 28 MEQ/L (21-32); CHLORIDE LEVEL 105 MEQ/L (98-107); CREATININE FOR GFR 0.89 MG/DL (0.70-1.30); GLOMERULAR FILTRATION RATE > 60.0 (>60); GLUCOSE, FASTING 101 MG/DL (70-100); MAGNESIUM LEVEL 2.5 MG/DL (1.8-2.4); POTASSIUM SERUM 3.6 MEQ/L (3.5-5.1); SODIUM LEVEL 139 MEQ/L (136-145)
[2022-02-21 07:38] VITALS: BP 142/97
[2022-02-21] MEDS: PANTOPRAZOLE 40MG VIAL IV SCH (08:27)
[2022-02-21] MEDS: FOLIC ACID 1MG TAB PO SCH (08:42)
[2022-02-21] MEDS: MULTIVITAMINS/MINERALS THERAP 1 TAB PO SCH (08:42)
[2022-02-21] MEDS: THIAMINE 100 MG TAB PO SCH (08:42)
[2022-02-21] MEDS ORDERED: levETIRAcetam 250MG TABLET (KEPPRA) PO SCH (09:00)
[2022-02-21] MEDS ORDERED: BUPRENORPHINE/NALOXONE 8-2MG SUBLINGUAL TABLET(SUBOXONE) SL SCH (09:00)
[2022-02-21] MEDS ORDERED: METOCLOPRAMIDE INJ 10MG/2ML VIAL (J2765 PER 1) IV PRN (09:05)
[2022-02-21] MEDS ORDERED: FOLI1TAB11 PO ×3 (10:23→15:02)
[2022-02-21] MEDS ORDERED: THIA100TA PO ×3 (10:23→15:02)
[2022-02-21] MEDS ORDERED: PANT40TA29 PO ×3 (10:23→15:02)
[2022-02-21] MEDS ORDERED: VITMTA PO ×3 (10:23→15:02)
[2022-02-21] MEDS ORDERED: METO5TAB2 PO ×3 (10:23→15:02)
[2022-02-21 11:24] VITALS: BP 128/87
[2022-02-21] MEDS ORDERED: METOCLOPRAMIDE 5 MG TAB PO SCH (12:00)
[2022-02-21] MEDS ORDERED: KEPP1TAB2 PO ×2 (13:28→15:02)
== END 2022-02-21 15:04 | disposition home or self-care (01) | DRG 775 ==
LOC: EDBD 17:37 → M ED 17:37 → M ED INP 22:37 → ENRESERV 23:24 → M PCU 02-20 00:55
PROVIDERS: ADMIT Family Medicine; ATTEND Family Medicine
DX: F10.130 Alcohol abuse with withdrawal, uncomplicated (principal); K92.0 Hematemesis; N17.9 Acute kidney failure, unspecified; R56.9 Unspecified convulsions; E87.1 Hypo-osmolality and hyponatremia; R74.01 Elevation of levels of liver transaminase levels; Z79.899 Other long term (current) drug therapy; E87.6 Hypokalemia; Z91.14 Patient's other noncompliance with medication regimen; F17.200 Nicotine dependence, unspecified, uncomplicated

== ENCOUNTER → 2022-02-28 | Outpatient (REF) | payer OTHER ==
[~2022-02-28] MED LIST changes: +FOLI1TAB11 PO; +KEPP1TAB2 PO; +MED REC COMMENT; +METO5TAB2 PO; +ONDA4TAB6 PO; +PANT40TA29 PO; +THIA100TA PO; +VITMTA PO
== END ==
LOC: M LABWUC 11:59
PROVIDERS: ATTEND Family Medicine
DX: Z51.81 Encounter for therapeutic drug level monitoring (principal)

== ENCOUNTER 2022-08-15 20:09 | Inpatient (IN) | payer OTHER ==
[~2022-08-15] VITALS: Ht 182.9 cm; Wt 81.8 kg
[2022-08-15 22:15] LABS: HEMATOCRIT 47.4 % (42.0-52.0); HEMOGLOBIN 15.7 g/dl (13.5-17.5); MEAN CORPUSCULAR HEMOGLOBIN 25.7 pg (27.0-33.0); MEAN CORPUSCULAR HGB CONC 33.1 g/dl (32.0-36.5); MEAN CORPUSCULAR VOLUME 77.7 fl (80.0-96.0); PLATELET COUNT, AUTOMATED 338 10^3/uL (150-450); WHITE BLOOD COUNT 13.6 10^3/uL (4.0-10.0)
[2022-08-15 22:34] LABS: BARBITURATES URINE NEGATIVE (NEGATIVE); PHENCYCLIDINE URINE NEGATIVE (NEGATIVE)
[2022-08-15 22:35] LABS: COCAINE METABOLITE URINE NEGATIVE (NEGATIVE); METHADONE URINE NEGATIVE (NEGATIVE)
[2022-08-15 22:36] LABS: AMPHETAMINES LEVEL URINE POSITIVE (NEGATIVE); BENZODIAZEPINES URINE POSITIVE (NEGATIVE); CANNABINOIDS URINE POSITIVE (NEGATIVE); ETHYL ALCOHOL (ETHANOL) < 0.003 % (0.000-0.010); OPIATES URINE POSITIVE (NEGATIVE)
[2022-08-15 22:38] LABS: ACETAMINOPHEN LEVEL < 2.0 UG/ML (10.0-20.0); ALBUMIN 4.5 G/DL (3.2-5.2); ALKALINE PHOSPHATASE 88 U/L (46-116); ALT/SGPT 54 U/L (7.0-40); AST/SGOT 28 U/L (<34); BILIRUBIN,DIRECT 0.2 MG/DL (<0.4); BILIRUBIN,TOTAL 0.4 MG/DL (0.3-1.2); BLOOD UREA NITROGEN 19 MG/DL (9-23); CALCIUM LEVEL 9.5 MG/DL (8.5-10.1); CARBON DIOXIDE LEVEL 24 MMOL/L (20-31); CHLORIDE LEVEL 105 MMOL/L (98-107); CREATININE FOR GFR 0.92 MG/DL (0.70-1.30); GLOMERULAR FILTRATION RATE > 60.0 (>60); GLUCOSE, FASTING 92 MG/DL (60-100); POTASSIUM SERUM 4.2 MMOL/L (3.5-5.1); SALICYLATE LEVEL < 3.0 MG/DL (<30); SODIUM LEVEL 141 MMOL/L (136-145); TOTAL PROTEIN 8.3 G/DL (5.7-8.2)
[2022-08-15 22:40] LABS: THYROID STIMULATING HORMONE 4.032 uIU/ML (0.55-4.78)
[2022-08-16] MEDS ORDERED: ONDA4TAB6 PO (02:06)
[2022-08-16] MEDS ORDERED: BACTDSTA PO (02:06)
[2022-08-16] MEDS ORDERED: KEPP1TAB2 PO (02:06)
[2022-08-16] MEDS ORDERED: QUET200T2 PO (02:06)
[2022-08-16] MEDS ORDERED: HOME MED LIST COMPLETE! XX SCH (02:10)
[2022-08-16] MEDS ORDERED: OLANZapine ORAL DISINTEGRATING TAB 5MG PO PRN (06:15)
[2022-08-16] MEDS ORDERED: MOM 30ML SUSPENSION UDC PO PRN (06:15)
[2022-08-16] MEDS ORDERED: traZODone 50 MG TAB PO PRN (06:15)
[2022-08-16] MEDS ORDERED: ACETAMINOPHEN TAB 650MG DOSE (2X325MG) PO PRN (06:15)
[2022-08-16] MEDS ORDERED: MAALOX 30 ML SUSP *UDC PO PRN (06:15)
[2022-08-16] MEDS ORDERED: LORazepam 1 MG TAB PO PRN (06:15)
[2022-08-16] MEDS ORDERED: ONDANSETRON 4MG ORAL DISINTEGRATING TAB PO PRN (06:15)
[2022-08-16] MEDS ORDERED: PILL CUTTER 1 EACH XX PRN (06:45)
[2022-08-16 07:52] VITALS: BP 126/81
[2022-08-16 08:25] VITALS: BP 126/81
[2022-08-16] MEDS: FOLIC ACID 1MG TAB PO SCH (09:55)
[2022-08-16] MEDS: THIAMINE 100 MG TAB PO SCH ×2 (09:55→21:34)
[2022-08-16] MEDS: BACTRIM 160MG/800MG DS TAB PO SCH ×2 (09:55→21:35)
[2022-08-16] MEDS: MULTIVITAMINS/MINERALS THERAP 1 TAB PO SCH (09:55)
[2022-08-16] MEDS: ADDERALL 5 MG TAB PO SCH ×2 (09:56→13:17)
[2022-08-16] MEDS: levETIRAcetam 250MG TABLET (KEPPRA) PO SCH ×2 (09:56→21:34)
[2022-08-16] MEDS: BUPRENORPHINE/NALOXONE 8-2MG SUBLINGUAL TABLET(SUBOXONE) SL SCH (09:59)
[2022-08-16] MEDS: NICOTINE 21MG/24HR 1 EA TRANSDERMAL TD SCH ×2 (09:59→10:05)
[2022-08-16] MEDS ORDERED: cloNIDine 0.1MG TABLET PO PRN (11:25)
[2022-08-16 16:00] VITALS: BP 147/94
[2022-08-16 18:02] VITALS: BP 147/94
[2022-08-16] MEDS: PRAZOSIN 1 MG CAP PO SCH (21:34)
[2022-08-16] MEDS: ARIPiprazole 2 MG TAB PO SCH (21:34)
[2022-08-16] MEDS: QUEtiapine FUMARATE 200 MG TAB PO SCH (21:35)
[2022-08-17] VITALS (8 sets, daily range): BP systolic 126–140; BP diastolic 83–93
[2022-08-17] MEDS: LORazepam 2 MG TAB PO PRN ×3 (06:40→12:52)
[2022-08-17] MEDS: BUPRENORPHINE/NALOXONE 8-2MG SUBLINGUAL TABLET(SUBOXONE) SL SCH (08:43)
[2022-08-17] MEDS: THIAMINE 100 MG TAB PO SCH ×2 (08:43→21:04)
[2022-08-17] MEDS: BACTRIM 160MG/800MG DS TAB PO SCH (08:43)
[2022-08-17] MEDS: MULTIVITAMINS/MINERALS THERAP 1 TAB PO SCH (08:43)
[2022-08-17] MEDS: FOLIC ACID 1MG TAB PO SCH (08:43)
[2022-08-17] MEDS: levETIRAcetam 250MG TABLET (KEPPRA) PO SCH ×2 (08:43→21:04)
[2022-08-17] MEDS: ADDERALL 5 MG TAB PO SCH ×2 (08:44→12:38)
[2022-08-17] MEDS: NICOTINE 21MG/24HR 1 EA TRANSDERMAL TD SCH (09:00)
[2022-08-17 10:35] LABS: BASO # 0.1 10^3/uL (0.0-0.2); BASO % 0.5 % (0.0-1.0); EOS # 0.1 10^3/uL (0.0-0.5); EOS % 0.7 % (0.0-3.0); HEMOGLOBIN 16.1 g/dl (13.5-17.5); LYMPH # 2.4 10^3/uL (1.5-5.0); LYMPH % 22.1 % (24.0-44.0); MEAN CORPUSCULAR HEMOGLOBIN 25.7 pg (27.0-33.0); MEAN CORPUSCULAR HGB CONC 32.9 g/dl (32.0-36.5); MEAN CORPUSCULAR VOLUME 78.1 fl (80.0-96.0); MONO # 0.3 10^3/uL (0.0-0.8); MONO % 3.1 % (2.0-8.0); NEUTROPHILS # 7.9 10^3/uL (1.5-8.5); NEUTROPHILS % 73.1 % (36.0-66.0); RED BLOOD COUNT 6.27 10^6/uL (4.30-6.10); WHITE BLOOD COUNT 10.8 10^3/uL (4.0-10.0)
[2022-08-17 11:03] LABS: BLOOD UREA NITROGEN 15 MG/DL (9-23); CALCIUM LEVEL 9.1 MG/DL (8.5-10.1); CARBON DIOXIDE LEVEL 24 MMOL/L (20-31); CHLORIDE LEVEL 103 MMOL/L (98-107); CREATININE FOR GFR 0.84 MG/DL (0.70-1.30); GLOMERULAR FILTRATION RATE > 60.0 (>60); GLUCOSE, FASTING 118 MG/DL (60-100); POTASSIUM SERUM 5.3 MMOL/L (3.5-5.1); SODIUM LEVEL 136 MMOL/L (136-145)
[2022-08-17 11:24] LABS: PLATELET COUNT, AUTOMATED 267 10^3/uL (150-450)
[2022-08-17] MEDS ORDERED: PATIROMER SORBITEX CALCIUM 8.4 GM POWDER PACKET (VELTASSA) PO ONE (16:20)
[2022-08-17] MEDS: DOXYCYCLINE HYCLATE 100MG TABLET PO SCH (21:04)
[2022-08-17] MEDS: QUEtiapine FUMARATE 200 MG TAB PO SCH (21:04)
[2022-08-17] MEDS: PRAZOSIN 1 MG CAP PO SCH (21:04)
[2022-08-17] MEDS: ARIPiprazole 2 MG TAB PO SCH (21:04)
[2022-08-18] VITALS (7 sets, daily range): BP systolic 121–144; BP diastolic 80–99
[2022-08-18] MEDS: NICOTINE 21MG/24HR 1 EA TRANSDERMAL TD SCH (09:00)
[2022-08-18] MEDS: ADDERALL 5 MG TAB PO SCH ×2 (09:23→13:51)
[2022-08-18] MEDS: MULTIVITAMINS/MINERALS THERAP 1 TAB PO SCH (09:23)
[2022-08-18] MEDS: levETIRAcetam 250MG TABLET (KEPPRA) PO SCH ×2 (09:23→20:52)
[2022-08-18] MEDS: DOXYCYCLINE HYCLATE 100MG TABLET PO SCH ×2 (09:23→20:52)
[2022-08-18] MEDS: THIAMINE 100 MG TAB PO SCH ×2 (09:23→20:52)
[2022-08-18] MEDS: FOLIC ACID 1MG TAB PO SCH (09:24)
[2022-08-18] MEDS: BUPRENORPHINE/NALOXONE 8-2MG SUBLINGUAL TABLET(SUBOXONE) SL SCH (09:34)
[2022-08-18 09:38] LABS: HEMOGLOBIN 16.7 g/dl (13.5-17.5); MEAN CORPUSCULAR HEMOGLOBIN 25.7 pg (27.0-33.0); MEAN CORPUSCULAR HGB CONC 33.4 g/dl (32.0-36.5); MEAN CORPUSCULAR VOLUME 76.8 fl (80.0-96.0); PLATELET COUNT, AUTOMATED 325 10^3/uL (150-450); RED BLOOD COUNT 6.51 10^6/uL (4.30-6.10); WHITE BLOOD COUNT 10.7 10^3/uL (4.0-10.0)
[2022-08-18 10:24] LABS: BLOOD UREA NITROGEN 13 MG/DL (9-23); CALCIUM LEVEL 9.5 MG/DL (8.5-10.1); CARBON DIOXIDE LEVEL 23 MMOL/L (20-31); CHLORIDE LEVEL 102 MMOL/L (98-107); CREATININE FOR GFR 0.97 MG/DL (0.70-1.30); GLOMERULAR FILTRATION RATE > 60.0 (>60); GLUCOSE, FASTING 111 MG/DL (60-100); POTASSIUM SERUM 4.4 MMOL/L (3.5-5.1); SODIUM LEVEL 136 MMOL/L (136-145)
[2022-08-18] MEDS: QUEtiapine FUMARATE 200 MG TAB PO SCH (20:52)
[2022-08-18] MEDS: ARIPiprazole 2 MG TAB PO SCH (20:52)
[2022-08-18] MEDS: PRAZOSIN 1 MG CAP PO SCH (20:53)
[2022-08-19 06:22] VITALS: BP 129/72
[2022-08-19 08:00] VITALS: BP 129/72
[2022-08-19] MEDS: MULTIVITAMINS/MINERALS THERAP 1 TAB PO SCH (08:57)
[2022-08-19] MEDS: FOLIC ACID 1MG TAB PO SCH (08:57)
[2022-08-19] MEDS: levETIRAcetam 250MG TABLET (KEPPRA) PO SCH ×2 (08:57→21:21)
[2022-08-19] MEDS: DOXYCYCLINE HYCLATE 100MG TABLET PO SCH ×2 (08:57→21:21)
[2022-08-19] MEDS: NICOTINE 21MG/24HR 1 EA TRANSDERMAL TD SCH (08:58)
[2022-08-19] MEDS: ADDERALL 5 MG TAB PO SCH ×2 (09:00→13:48)
[2022-08-19] MEDS: BUPRENORPHINE/NALOXONE 8-2MG SUBLINGUAL TABLET(SUBOXONE) SL SCH (09:58)
[2022-08-19 18:00] VITALS: BP 147/87
[2022-08-19] MEDS: QUEtiapine FUMARATE 200 MG TAB PO SCH ×2 (21:00→21:21)
[2022-08-19] MEDS: ARIPiprazole 2 MG TAB PO SCH (21:21)
[2022-08-19] MEDS: PRAZOSIN 1 MG CAP PO SCH (21:23)
[2022-08-20 06:13] VITALS: BP 150/89
[2022-08-20] MEDS: NICOTINE 21MG/24HR 1 EA TRANSDERMAL TD SCH (09:00)
[2022-08-20] MEDS: ADDERALL 5 MG TAB PO SCH ×2 (09:15→13:27)
[2022-08-20] MEDS: levETIRAcetam 250MG TABLET (KEPPRA) PO SCH ×2 (09:22→21:00)
[2022-08-20] MEDS: DOXYCYCLINE HYCLATE 100MG TABLET PO SCH ×2 (09:22→22:41)
[2022-08-20] MEDS: BUPRENORPHINE/NALOXONE 8-2MG SUBLINGUAL TABLET(SUBOXONE) SL SCH (09:51)
[2022-08-20] MEDS: ARIPiprazole 2 MG TAB PO SCH (21:00)
[2022-08-20] MEDS: QUEtiapine FUMARATE 200 MG TAB PO SCH (21:00)
[2022-08-20 22:42] VITALS: BP 144/80
[2022-08-20] MEDS: PRAZOSIN 1 MG CAP PO SCH (22:42)
[2022-08-21 06:29] VITALS: BP 123/77
[2022-08-21] MEDS: DOXYCYCLINE HYCLATE 100MG TABLET PO SCH (08:00)
[2022-08-21] MEDS: BUPRENORPHINE/NALOXONE 8-2MG SUBLINGUAL TABLET(SUBOXONE) SL SCH (08:00)
[2022-08-21] MEDS: levETIRAcetam 250MG TABLET (KEPPRA) PO SCH (08:01)
[2022-08-21] MEDS: ADDERALL 5 MG TAB PO SCH (08:01)
[2022-08-21] MEDS: NICOTINE 21MG/24HR 1 EA TRANSDERMAL TD SCH (08:01)
[2022-08-21] MEDS ORDERED: ABIL1TAB13 PO (09:21)
[2022-08-21] MEDS ORDERED: QUET200T2 PO (09:21)
[2022-08-21] MEDS ORDERED: DOXY100T PO (09:21)
[2022-08-21] MEDS ORDERED: PRAZ2CAP PO (09:21)
[2022-08-21] MEDS ORDERED: NICO21PAT TD (09:21)
[2022-08-22] MEDS ORDERED: ADDE30TA PO (12:28)
== END 2022-08-21 10:07 | disposition home or self-care (01) | DRG 754 ==
LOC: M ED 20:09 → M ED INP 08-16 06:15 → M PSY 08-16 08:02
PROVIDERS: ADMIT Psychiatry & Neurology Psychiatry; ATTEND Student in an Organized Health Care Education/Training Program
DX: F32.A Depression, unspecified (principal); F12.90 Cannabis use, unspecified, uncomplicated; F16.90 Hallucinogen use, unspecified, uncomplicated; F14.23 Cocaine dependence with withdrawal; F17.200 Nicotine dependence, unspecified, uncomplicated; R45.851 Suicidal ideations; L03.116 Cellulitis of left lower limb; Z79.899 Other long term (current) drug therapy; Z88.8 Allergy status to other drugs, medicaments and biological substances

== ENCOUNTER 2023-07-22 18:12 | Emergency (ER) | payer MEDICAID, OTHER ==
[~2023-07-22] VITALS: Ht 182.9 cm; Wt 93.8 kg
[2023-07-22 18:12] VITALS: BP 136/90; TEMP 98; O2SAT 98
[~2023-07-22 18:12] MED LIST changes: +ABIL1TAB13 PO; +BACTDSTA PO; +DOXY100T PO; +NICO21PAT TD; +QUET200T2 PO
[2023-07-22] MEDS ORDERED: IBUP-1022 PO (20:18)
== END 2023-07-22 20:23 | disposition home or self-care (01) ==
LOC: M ED 18:12
DX: J10.01 Influenza due to other identified influenza virus with the same other identified influenza virus pneumonia (principal); J45.909 Unspecified asthma, uncomplicated; G40.909 Epilepsy, unspecified, not intractable, without status epilepticus; K58.9 Irritable bowel syndrome, unspecified; B18.2 Chronic viral hepatitis C; E87.6 Hypokalemia; Z88.8 Allergy status to other drugs, medicaments and biological substances; Z79.83 Long term (current) use of bisphosphonates; Z79.2 Long term (current) use of antibiotics; Z79.899 Other long term (current) drug therapy

== ENCOUNTER 2023-08-09 23:11 | Emergency (ER) | payer MEDICAID ==
[~2023-08-09] VITALS: Ht 182.9 cm; Wt 95.5 kg
[~2023-08-09 23:11] MED LIST changes: +IBUP-1022 PO
[2023-08-10] MEDS: IBUPROFEN 800 MG TAB PO ONE (00:53)
[2023-08-10] MEDS: BOOSTRIX VACCINE (TETANUS/DIPHTH/ACEL. PERTUSSIS) 0.5ML SYR IM ONE (00:56)
[2023-08-10 01:36] VITALS: BP 135/92; TEMP 98.5; O2SAT 99
== END 2023-08-10 01:53 | disposition home or self-care (01) ==
LOC: EDBD 23:11 → M ED 23:11
DX: S02.401A Maxillary fracture, unspecified side, initial encounter for closed fracture (principal); S02.2XXA Fracture of nasal bones, initial encounter for closed fracture; Y04.0XXA Assault by unarmed brawl or fight, initial encounter; M50.322 Other cervical disc degeneration at C5-C6 level; M25.78 Osteophyte, vertebrae; Z88.8 Allergy status to other drugs, medicaments and biological substances; Z79.83 Long term (current) use of bisphosphonates; Z79.2 Long term (current) use of antibiotics; Z79.899 Other long term (current) drug therapy; Y92.9 Unspecified place or not applicable; Y93.9 Activity, unspecified; Y99.9 Unspecified external cause status

== ENCOUNTER 2023-08-15 14:49 | Emergency (ER) | payer MEDICAID, OTHER ==
[~2023-08-15] VITALS: Ht 182.9 cm; Wt 96.4 kg
[2023-08-15] MEDS ORDERED: GABA-282 (15:00)
[2023-08-15 20:33] VITALS: BP 144/67; TEMP 98.2; O2SAT 96
== END 2023-08-16 00:18 | disposition left against medical advice (07) ==
LOC: M ED 14:49
DX: Z53.21 Procedure and treatment not carried out due to patient leaving prior to being seen by health care provider (principal)

== ENCOUNTER 2023-08-28 13:08 | Emergency (ER) | payer OTHER ==
[~2023-08-28 13:08] MED LIST changes: +GABA-282
[2023-08-28] MEDS ORDERED: METH-1177 PO (13:50)
[2023-08-28 15:34] LABS: BLOOD UREA NITROGEN 15 MG/DL (9-23); CALCIUM LEVEL 8.6 MG/DL (8.5-10.1); CARBON DIOXIDE LEVEL 26 MMOL/L (20-31); CHLORIDE LEVEL 105 MMOL/L (98-107); CREATININE FOR GFR 1.03 MG/DL (0.70-1.30); GLOMERULAR FILTRATION RATE > 60.0 (>60); GLUCOSE, FASTING 89 MG/DL (60-100); POTASSIUM SERUM 4.1 MMOL/L (3.5-5.1); SODIUM LEVEL 139 MMOL/L (136-145)
[2023-08-28 15:36] LABS: BASO # 0.1 10^3/uL (0.0-0.2); BASO % 0.7 % (0.0-1.0); EOS # 0.1 10^3/uL (0.0-0.5); EOS % 1.6 % (0.0-3.0); HEMOGLOBIN 12.5 g/dl (13.5-17.5); LYMPH # 2.3 10^3/uL (1.5-5.0); LYMPH % 27.6 % (24.0-44.0); MEAN CORPUSCULAR HEMOGLOBIN 26.9 pg (27.0-33.0); MEAN CORPUSCULAR HGB CONC 32.9 g/dl (32.0-36.5); MEAN CORPUSCULAR VOLUME 81.7 fl (80.0-96.0); MONO % 11.9 % (2.0-8.0); NEUTROPHILS # 4.8 10^3/uL (1.5-8.5); NEUTROPHILS % 58.1 % (36.0-66.0); PLATELET COUNT, AUTOMATED 198 10^3/uL (150-450); RED BLOOD COUNT 4.65 10^6/uL (4.30-6.10); WHITE BLOOD COUNT 8.3 10^3/uL (4.0-10.0)
[2023-08-28 15:37] LABS: THYROID STIMULATING HORMONE 0.773 uIU/ML (0.55-4.78)
[2023-08-28] MEDS: IBUPROFEN 800 MG TAB PO ONE (17:46)
[2023-08-28 18:01] VITALS: BP 133/72; TEMP 98.6; O2SAT 96
== END 2023-08-28 18:02 | disposition home or self-care (01) ==
LOC: M ED 13:08
DX: U07.1 COVID-19 (principal); J45.909 Unspecified asthma, uncomplicated; G40.909 Epilepsy, unspecified, not intractable, without status epilepticus; F10.10 Alcohol abuse, uncomplicated; F17.200 Nicotine dependence, unspecified, uncomplicated; Z88.8 Allergy status to other drugs, medicaments and biological substances; Z79.891 Long term (current) use of opiate analgesic; Z11.52 Encounter for screening for COVID-19

== ENCOUNTER → 2023-11-01 | Outpatient (REF) | payer OTHER ==
[~2023-11-01] MED LIST changes: +METH-1177 PO; +ONDA-282 PO; -ONDA4TAB6 PO
[2023-11-01 15:43] LABS: HEMATOCRIT 42.4 % (42.0-52.0); HEMOGLOBIN 14.2 g/dl (13.5-17.5); MEAN CORPUSCULAR HEMOGLOBIN 27.1 pg (27.0-33.0); MEAN CORPUSCULAR HGB CONC 33.5 g/dl (32.0-36.5); MEAN CORPUSCULAR VOLUME 80.9 fl (80.0-96.0); PLATELET COUNT, AUTOMATED 277 10^3/uL (150-450); RED BLOOD COUNT 5.24 10^6/uL (4.30-6.10); WHITE BLOOD COUNT 7.1 10^3/uL (4.0-10.0)
[2023-11-01 15:45] LABS: GC DNA AMPLIFICATION NEGATIVE (NEGATIVE)
[2023-11-01 16:00] LABS: HEPATITIS B SURFACE ANTIGEN NEGATIVE (NEGATIVE)
[2023-11-01 16:13] LABS: HIV 1&2 SCREEN NEGATIVE (NEGATIVE)
[2023-11-01 16:22] LABS: ALBUMIN 4.5 G/DL (3.2-5.2); ALKALINE PHOSPHATASE 85 U/L (46-116); ALT/SGPT 21 U/L (7.0-40); AST/SGOT 13 U/L (<34); BILIRUBIN,TOTAL 0.5 MG/DL (0.3-1.2); BLOOD UREA NITROGEN 25 MG/DL (9-23); CALCIUM LEVEL 9.7 MG/DL (8.5-10.1); CARBON DIOXIDE LEVEL 27 MMOL/L (20-31); CHLORIDE LEVEL 108 MMOL/L (98-107); GLOMERULAR FILTRATION RATE > 60.0 (>60); GLUCOSE, FASTING 119 MG/DL (60-100); POTASSIUM SERUM 3.8 MMOL/L (3.5-5.1); SODIUM LEVEL 141 MMOL/L (136-145); TOTAL PROTEIN 7.9 G/DL (5.7-8.2)
[2023-11-01 16:24] LABS: HEPATITIS C VIRUS ABY INDEX > 11.00 INDEX (<0.8)
[2023-11-06 13:27] LABS: HCV RNA QUANTITATION <15 NOT DETECTED IU/mL (NOT DETECTED); HCV RNA log10 <1.18 NOT DETECTED Log IU/mL (NOT DETECTED)
== END ==
LOC: M LABWUC 11:13
PROVIDERS: ATTEND Family Medicine
DX: F11.20 Opioid dependence, uncomplicated (principal)

== ENCOUNTER 2024-01-21 13:34 | Emergency (ER) | payer OTHER ==
[~2024-01-21] VITALS: Ht 182.9 cm; Wt 93.2 kg
[2024-01-21 19:06] VITALS: BP 114/72; TEMP 97.6; O2SAT 98
== END 2024-01-21 19:06 | disposition home or self-care (01) ==
LOC: M ED 13:34
DX: Z48.00 Encounter for change or removal of nonsurgical wound dressing (principal); G89.18 Other acute postprocedural pain; W19.XXXA Unspecified fall, initial encounter; B19.20 Unspecified viral hepatitis C without hepatic coma; J45.909 Unspecified asthma, uncomplicated; Z88.8 Allergy status to other drugs, medicaments and biological substances; Z96.698 Presence of other orthopedic joint implants; Z79.899 Other long term (current) drug therapy; Y99.9 Unspecified external cause status

== ENCOUNTER → 2024-05-09 | Outpatient (REF) ==
[~2024-05-09] MED LIST changes: +GABA-1172; -GABA-282
== END ==
LOC: M PLAIMG 12:01
PROVIDERS: ATTEND Internal Medicine
DX: T84.84XA Pain due to internal orthopedic prosthetic devices, implants and grafts, initial encounter (principal)